=== PATIENT | male | born 1955 | race Caucasian/White ===

== ENCOUNTER → 2019-02-18 06:28 | Outpatient (CLI) | payer BC, SELFPAY ==
[2019-02-18 09:36] LABS: Alanine Aminotransferase 35 IU/L (21-72); Albumin Globulin Ratio 1.3 (1.0-2.8); Alkaline Phosphatase 49 U/L (38-126); Aspartate Aminotransferase 28 IU/L (17-59); BUN Creatinine Ratio 22.5 (6-22); Bilirubin Total 0.5 mg/dL (0.2-1.3); Blood Urea Nitrogen 18 mg/dL (9-20); Calcium 9.2 mg/dL (8.4-10.2); Carbon Dioxide 29 mmol/L (22-32); Chloride 106 mmol/L (98-107); Cholesterol 203 mg/dL (140-199); Estimated Glomerular Filt Rate > 60.0 mL/min (>60); Globulin 3.2 g/dL (1.7-4.1); Glucose 87 mg/dL (80-110); HDL Cholesterol 54 mg/dL (40-60); HEMOLYSIS < 15 (0-50); LDL Cholesterol Calculated 121 mg/dL (<100); Potassium 4.5 mmol/L (3.4-5.1); Sodium 142 mmol/L (137-145); Total Protein 7.2 g/dL (6.3-8.2); Triglycerides 139 mg/dL (35-150)
[2019-02-18 09:51] LABS: Add Manual Diff / Slide Review NO; Basophils Absolute Auto 100 /uL (0-100); Basophils Percent Auto 1.1 % (0-2); Eosinophils Absolute Auto 300 /uL (0-450); Eosinophils Percent Auto 4.9 % (2-4); Hematocrit 43.1 % (41-53); Hemoglobin 14.8 g/dL (13.5-17.5); Lymphocytes Absolute Auto 2400 /uL (1100-4500); Lymphocytes Percent Auto 34.8 % (25-40); Mean Corpuscular HGB Conc 34.3 % (30-36); Mean Corpuscular Hemoglobin 32.5 PG (26-34); Mean Corpuscular Volume 94.6 fL (80-100); Monocytes Absolute Auto 500 /uL (0-900); Monocytes Percent Auto 7.7 % (3-14); Neutrophils Absolute Auto 3500 /uL (1500-7000); Neutrophils Percent Auto 51.5 % (50-75); Platelet Count 294 X10^3/uL (150-400); Red Blood Cell Count 4.55 X10^6/uL (4.5-5.9); Red Cell Distribution Width 14.3 % (11.6-14.8); White Blood Cell Count 6.8 X10^3/uL (4.5-11.0)
[2019-02-18 09:58] LABS: Prostate Specific Antigen Scrn 0.717 ng/mL (0.1-4.0)
[2019-02-18 09:59] LABS: Thyroid Stimulating Hormone 0.88 uIU/mL (0.47-4.68)
[2019-02-18 10:23] LABS: Appearance Urine UA CLEAR; Bilirubin Urine UA NEGATIVE (NEGATIVE); Color Urine UA YELLOW; Glucose Urine UA NEGATIVE (Negative); Ketones Urine UA NEGATIVE (NEGATIVE); Leukocyte Esterase Urine UA NEGATIVE (NEGATIVE); Nitrite Urine UA NEGATIVE (Negative); Occult Blood Urine UA TRACE-LYSED (Negative); Protein Urine UA NEGATIVE (Negative); Specific Gravity Urine UA >=1.030 (1.000-1.035); Urobilinogen Urine UA 0.2 E.U./dL (0.2)
== END ==
PROVIDERS: PCP Family Medicine; Visit Provider Family Medicine
DX: I10 Essential (primary) hypertension (principal); K51.90 Ulcerative colitis, unspecified, without complications; Z12.5 Encounter for screening for malignant neoplasm of prostate; Z13.29 Encounter for screening for other suspected endocrine disorder; Z51.81 Encounter for therapeutic drug level monitoring; Z87.39 Personal history of other diseases of the musculoskeletal system and connective tissue
CPT/HCPCS: 36415; 80053; 80061; 81003; 84443; 85025; G0103

== ENCOUNTER 2019-12-20 14:25 | Emergency (ER) | payer BC, SELFPAY ==
[2019-12-20 14:30] VITALS: BP 142/99; PULSE 105; RESP 18; TEMP 36.7; O2SAT 96; BMI 45.9
--- NOTE | 2019-12-20 14:45 | ED.ABDPAIN ---
HPI - Abdominal Pain <JUAN Gallegos - Last Filed: 12/20/19 21:08> General Chief Complaint: Abdominal Pain Stated Complaint: SEVERE PAIN ON LEFT SIDE AROUND FRONT Time Seen by Provider: 12/20/19 14:27 Source: patient Mode of arrival: Ambulatory Limitations: no limitations History of Present Illness HPI narrative: 64yo male with a history of obesity, ulcerative colitis, lap band, and hypertension, presents emergency department with an aching 7/10 left mid quadrant abdominal pain that started a few hours ago, radiates to L flank. He reports feeling bloated. Patient denies any aggravating or alleviating symptoms. Patient denies any vomiting, nausea, worsening UC symptoms such as diarrhea, blood in stools, chest pain, shortness of breath, cough, fevers, chills, or any other concerns. Patient states he has Remicade infusions for his ulcerative colitis. Related Data Home Medications Medication Instructions Recorded Confirmed infliximab 100 mg intravenous See Rx Instructions .ROUTE 01/24/18 12/20/19 solution .COMPLEX each cholecalciferol (vitamin D3) 1,000 2,000 unit PO DAILY ml 02/14/18 12/20/19 unit/drop oral drops aspirin 81 mg tablet,delayed 81 mg PO DAILY tab 02/11/19 12/20/19 release Previous Rx's Medication Instructions Recorded allopurinol 300 mg tablet 300 mg PO DAILY #90 tab 05/22/19 gabapentin 300 mg capsule 300 mg PO BEDTIME #90 cap 07/02/19 meloxicam 7.5 mg tablet 7.5 mg PO BID #180 tab 08/23/19 verapamil 180 mg 24 hr 180 mg PO DAILY #90 cap 11/05/19 capsule,extended release lisinopril 40 mg tablet 40 mg PO DAILY #90 tab 11/29/19 hydrocodone-acetaminophen [Gallant] 1 tab PO Q4-6H PRN #14 tab 12/20/19 ondansetron 4 mg PO Q6H PRN #20 tab 12/20/19 tamsulosin [Flomax] 0.4 mg PO DAILY #30 cap 12/20/19 Allergies Allergy/AdvReac Type Severity Reaction Status Date / Time Sulfa (Sulfonamide Allergy Intermediate RASH Verified 12/20/19 14:34 Antibiotics) [SULFA (SULFONAMIDE ANTIBIOTICS)] Review of Systems <JUAN Gallegos - Last Filed: 12/20/19 21:08> Review of Systems Narrative: REVIEW OF SYSTEMS: GENERAL: Denies fever, chills, malaise, or wt. loss. HENT: No head trauma. EYES: No vision changes. CARDIOVASCULAR: No chest pain, palpitations, or orthopnea. RESPIRATORY: No shortness of breath or cough. GASTROINTESTINAL: Complains of left mid to lower quadrant abdominal pain, see HPI GENITOURINARY: No dysuria. Pain radiates from Abd to L flank. MUSCULOSKELETAL: No pain, weakness, or trauma. INTEGUMENTARY: No rash, lesions, or pruritus. NEURO: No numbness, tingling, or headaches. PSYCH: No behavior or mood changes. Patient History <JUAN Gallegos - Last Filed: 12/20/19 21:08> Medical History Chicken pox (Resolved) Chronic post-traumatic headache (Chronic) Gout (Chronic ~1996) Hearing loss (Chronic ~1977) Hypertension (Chronic ~2004) Seasonal allergies (Chronic) Sleep apnea (Chronic ~1997) Tinnitus (Chronic ~1977) Ulcerative colitis (Chronic ~1999) Surgical History Anesthesia (Resolved) History of craniotomy (Resolved ~2015) History of left hip replacement (Resolved ~2016) History of right hip replacement (Resolved ~2014) History of sinus surgery (Resolved) Status post right rotator cuff repair (Resolved ~2004) Family History Father Multiple sclerosis Brother Diabetes mellitus Social History Smoking Status: Former smoker Smoking Status: Former smoker Substance Use Type: does not use Exam <JUAN Gallegos - Last Filed: 12/20/19 21:08> Initial Vital Signs Initial Vital Signs: Vital Signs Temperature 98.1 F 12/20/19 14:30 Pulse Rate 105 H 12/20/19 14:30 Respiratory Rate 18 12/20/19 14:30 Blood Pressure 142/99 H 12/20/19 14:30 Pulse Oximetry 96 12/20/19 14:30 PHYSICAL EXAMINATION: GENERAL: Well groomed, alert, and cooperative. Patient is obese. Answers questions promptly and appropriately. Vital signs noted. HENT: Normocephalic, atraumatic. Hearing intact. Oral mucosa is pink and moist. EYES: Conjunctiva pink, sclera white, no periorbital swelling. CARDIOVASCULAR: S1 and S2 sounds normal. Regular rate and rhythm, no murmurs, clicks, or bruits. No pedal edema. RESPIRATORY: Normal respiratory rate, trachea midline, airway patent. No stridor, nasal flaring or accessory muscle use. Lungs are clear in all choudhary without wheeze, rhonchi, or crackles. GASTROINTESTINAL: Bowel sounds normoactive. Abdomen is soft, tenderness to left lower and upper quadrant, no rebound tenderness. Abdomen may be distended, hard to determine due to abdominal obesity. Small mass palpated in this area, patient reports that this is related to his lap band. GENITALURINARY: No flank tenderness. MUSCULOSKELETAL: Normal gait and coordination. Equal tone and mass bilaterally. EXTREMITIES: CMS intact, no pedal edema. SKIN: Warm, dry, soft, appropriate color for ethnicity. No lesions, rashes, or wounds to visualized areas. NEURO: Alert and Oriented X 3. Good coordination. No ataxia, or sensory deficits, or cognitive issues. PSYCH: Appropriate affect and mood. <J Luis Mondragon MD - Last Filed: 12/21/19 07:47> Initial Vital Signs Initial Vital Signs: Vital Signs Temperature 98.1 F 12/20/19 14:30 Pulse Rate 105 H 12/20/19 14:30 Respiratory Rate 18 12/20/19 14:30 Blood Pressure 142/99 H 12/20/19 14:30 Pulse Oximetry 96 12/20/19 14:30 Course <JUAN Gallegos - Last Filed: 12/20/19 21:08> Course Course Narrative: Patient was given 4 mg of morphine which helped decreased pain but pain returned, he was given another 4 mg of morphine. Pain also returned, after administration of Toradol patient reported significant improvement of pain. Orders Ordered: Discontinued Medications Sodium Chloride (Normal Saline 0.9%) 1,000 mls @ 1,000 mls/hr IV BOLUS ONE Stop: 12/20/19 15:42 Last Infusion: 12/20/19 16:18 Dose: 0 mls/hr Documented by: Admin: 12/20/19 14:49 Dose: 1,000 mls/hr Documented by: TALIA Ketorolac Tromethamine (Toradol) 30 mg IV NOW ONE Stop: 12/20/19 16:46 Last Admin: 12/20/19 17:06 Dose: 30 mg Documented by: TEOFILO Morphine Sulfate (Morphine) 4 mg IV NOW ONE Stop: 12/20/19 14:57 Last Admin: 12/20/19 15:04 Dose: 4 mg Documented by: TALIA Morphine Sulfate (Morphine) 4 mg IV NOW ONE Stop: 12/20/19 16:10 Last Admin: 12/20/19 16:18 Dose: 4 mg Documented by: TEOFILO Consultations Consultation #1: Patient staffed with Dr. Mondragon. Vital Signs Vital signs: Vital Signs - 8 hr 12/20/19 14:30 12/20/19 15:02 12/20/19 16:00 Temperature 98.1 F 98.1 F Pulse Rate 105 H 89 70 Respiratory Rate 18 14 20 Blood Pressure 142/99 H Blood Pressure [Right Arm] 151/79 H 151/79 H Pulse Oximetry 96 100 97 12/20/19 17:15 Temperature Pulse Rate 68 Respiratory Rate 18 Blood Pressure Blood Pressure [Right Arm] 177/85 H Pulse Oximetry 97 <J Luis Mondragon MD - Last Filed: 12/21/19 07:47> Orders Ordered: Discontinued Medications Sodium Chloride (Normal Saline 0.9%) 1,000 mls @ 1,000 mls/hr IV BOLUS ONE Stop: 12/20/19 15:42 Last Infusion: 12/20/19 16:18 Dose: 0 mls/hr Documented by: Admin: 12/20/19 14:49 Dose: 1,000 mls/hr Documented by: TALIA Ketorolac Tromethamine (Toradol) 30 mg IV NOW ONE Stop: 12/20/19 16:46 Last Admin: 12/20/19 17:06 Dose: 30 mg Documented by: TEOFILO Morphine Sulfate (Morphine) 4 mg IV NOW ONE Stop: 12/20/19 14:57 Last Admin: 12/20/19 15:04 Dose: 4 mg Documented by: TALIA Morphine Sulfate (Morphine) 4 mg IV NOW ONE Stop: 12/20/19 16:10 Last Admin: 12/20/19 16:18 Dose: 4 mg Documented by: TEOFILO Vital Signs Vital signs: Vital Signs - 8 hr 12/20/19 14:30 12/20/19 15:02 12/20/19 16:00 Temperature 98.1 F 98.1 F Pulse Rate 105 H 89 70 Respiratory Rate 18 14 20 Blood Pressure 142/99 H Blood Pressure [Right Arm] 151/79 H 151/79 H Pulse Oximetry 96 100 97 12/20/19 17:15 Temperature Pulse Rate 68 Respiratory Rate 18 Blood Pressure Blood Pressure [Right Arm] 177/85 H Pulse Oximetry 97 MDM - Abdominal Pain <JUAN Gallegos - Last Filed: 12/20/19 21:08> Medical Records Attestation: I reviewed the patient's medical records. Lab Data Attestation: I reviewed the patient's lab results. Result diagrams: 12/20/19 14:43 12/20/19 14:43 Labs: Lab Results 12/20/19 12/20/19 12/20/19 Range/Units 14:43 14:43 16:40 WBC 11.2 H (4.5-11.0) X10^3/uL RBC 4.64 (4.5-5.9) X10^6/uL Hgb 15.3 (13.5-17.5) g/dL Hct 44.7 (41-53) % MCV 96.3 (80-100) fL MCH 32.9 (26-34) PG MCHC 34.2 (30-36) % RDW 14.6 (11.6-14.8) % Plt Count 309 (150-400) X10^3/uL Neut % (Auto) 74.1 (50-75) % Lymph % (Auto) 18.1 L (25-40) % Evangeline % (Auto) 5.9 (3-14) % Eos % (Auto) 0.8 L (2-4) % Baso % (Auto) 1.1 (0-2) % Neut # (Auto) 8300 H (3144-9561) /uL Lymph # (Auto) 2000 (6273-9669) /uL Evangeline # (Auto) 700 (0-900) /uL Eos # (Auto) 100 (0-450) /uL Baso # (Auto) 100 (0-100) /uL Sodium 140 (137-145) mmol/L Potassium 4.5 (3.4-5.1) mmol/L Chloride 105 (98-107) mmol/L Carbon Dioxide 27 (22-32) mmol/L BUN 19 (9-20) mg/dL Creatinine 1.17 (0.66-1.25) mg/dL Estimated GFR > 60.0 (>60) mL/min BUN/Creatinine Ratio 16.2 (6-22) Glucose 126 H (80-110) mg/dL Calcium 9.5 (8.4-10.2) mg/dL Total Bilirubin 0.5 (0.2-1.3) mg/dL AST 37 (17-59) IU/L ALT 45 (<50) IU/L Alkaline Phosphatase 52 (38-126) U/L Total Protein 8.1 (6.3-8.2) g/dL Albumin 4.4 (3.5-5.0) g/dL Globulin 3.7 (1.7-4.1) g/dL Albumin/Globulin Ratio 1.2 (1.0-2.8) Lipase 48 (23-300) U/L Urine RBC 5-10/hpf H (0-5/HPF) Urine WBC 0-1/hpf (0-5/HPF) Ur Squamous Epith Cells 0-1 /hpf (0-5/HPF) Urine Bacteria None seen (None) Ur Culture Indicated? Cult not indicated Point of care testing: Urine Dip Bedside Urine Glucose Negative Bedside Urine Bilirubin - Negative Bedside Urine Ketone +/- 5 Urine Specific [place] 1.020 Bedside Urine Occult Blood +++ Bedside Urine pH 5.5 Bedside Urine Protein +/- 15 Bedside Urine Urobilinogen - Negative Bedside Urine Nitrite - Negative Bedside Urine Leukocytes - Negative Esterase Imaging Data CT scan - abdomen/pelvis: Radiologist's Impression: [address] [address] [address] Scan Report Signed Patient: Nixon Travis RMR#: [id number] : 7Acct:[id number] Age/Sex: 64 / MDate of Service: 12/20/19 Loc: ED Accession Number: [id number] Procedure: CT abdomen pelvis w con Ordering Provider: Bethany Mancilla PROCEDURE: CT ABDOMEN PELVIS W CON INDICATIONS: L mid abd pain, L flank pain, hx UC TECHNIQUE: After the administration of intravenous contrast, 5 mm thick sections acquired from the diaphragm to the symphysis. 5 mm coronal and sagittal reformats were acquired. For radiation dose reduction, the following was used: automated exposure control, adjustment of mA and/or kV according to patient size. COMPARISON: [facility], CT, ABDOMEN/PELVIS WITH CONTRAST, 02/15/2014, 23:12. FINDINGS: Image quality: Excellent. ABDOMEN: Lung bases: Lung bases are clear. Heart size is normal. Solid organs: Liver is normal in size and enhancement. Gallbladder appears normal. Biliary system is non dilated. Pancreas enhances normally. Spleen is normal in size and enhancement. No adrenal nodules. Kidneys demonstrate normal size but subtle asymmetric reduced left-sided enhancement, with mild hydronephrosis and hydroureter on the left with perinephric and mild periureteral edema. This pattern extends into the pelvis where a impacted 2 x 3 mm calculus can be seen just proximal to the bladder margin, seen on series 2 image 84.. Peritoneum and bowel: Bowel loops demonstrate normal wall thickness and caliber. No free fluid or air. Prior lap band surgery, no evidence of inflammation along the course of the control catheter or at the control device area left anterolateral abdomen/pelvis junction in the subcutaneous fat. Nodes and vessels: No retroperitoneal or mesenteric adenopathy by size criteria. Aorta and inferior vena cava are normal in size. Miscellaneous: No ventral hernias. PELVIS: Genitourinary: Bladder wall thickness is normal. Miscellaneous: No inguinal hernias or adenopathy. Bones: No suspicious bony lesions. No vertebral body compression fractures. IMPRESSION: 2 x 3 mm calculus within the distal left ureter causing mild left hydronephrosis and hydroureter and perinephric and periureteral edema in addition to slight reduced enhancement of the left kidney. No diverticulitis is found. Gastric lap band surgery, without associated inflammation are visualized operative complication. Dictated by: Kelechi Mcpherson M.D. on 12/20/2019 at 16:37 Approved by: Kelechi Mcpherson M.D. on 12/20/2019 at 16:40 ECG Data Interpretation: Sinus rhythm, rate 87, IN interval 164, QTC 411. No ST elevation or ST depression. Borderline left axis deviation. No T wave inversion in V1. Mild right ventricular delay in V1 and V2. EKG also viewed by Dr. Mondragon. [facility] Narrative Medical decision making narrative: 64-year-old male history of ulcerative colitis presenting to the emergency department with left abdominal and flank pain. CT showed small renal calculus in the left ureter with hydronephrosis which is most likely the cause of pain. Renal function was intact, normal creatinine and GFR, pain was reduced with medications, patient was not vomiting, was a candidate for outpatient treatment. Patient did have an elevated white blood cell count of 11, this was an isolated white blood cell count which he has had in the past, no left shift, urine was clean without nitrates, leukocytes or bacteria, and lack of any infectious findings on CT. Additionally, patient was afebrile, non tachycardic, and did not display any other symptoms of infectious etiology. Likely acute abdominal etiology due to lack of other suspicious findings such as diverticulitis or perforation or abscess. Patient was encouraged to follow up with Urology and primary care provider in the next week. He was given pain medication, tamsulosin, and nausea medication. Due to small measure of stone measuring 2 mm x 3 mm without signs of renal impairment, patient will most likely passed stone. However, he was given very strict return precautions for new or worsening symptoms such as the development of a fever, severe pain, uncontrollable vomiting, and except drip. Patient agreed to plan of care verbalized understanding. <J Luis Mondragon MD - Last Filed: 12/21/19 07:47> Lab Data Labs: Lab Results 12/20/19 12/20/19 12/20/19 Range/Units 14:43 14:43 16:40 WBC 11.2 H (4.5-11.0) X10^3/uL RBC 4.64 (4.5-5.9) X10^6/uL Hgb 15.3 (13.5-17.5) g/dL Hct 44.7 (41-53) % MCV 96.3 (80-100) fL MCH 32.9 (26-34) PG MCHC 34.2 (30-36) % RDW 14.6 (11.6-14.8) % Plt Count 309 (150-400) X10^3/uL Neut % (Auto) 74.1 (50-75) % Lymph % (Auto) 18.1 L (25-40) % Evangeline % (Auto) 5.9 (3-14) % Eos % (Auto) 0.8 L (2-4) % Baso % (Auto) 1.1 (0-2) % Neut # (Auto) 8300 H (2505-3087) /uL Lymph # (Auto) 2000 (1504-4690) /uL Evangeline # (Auto) 700 (0-900) /uL Eos # (Auto) 100 (0-450) /uL Baso # (Auto) 100 (0-100) /uL Sodium 140 (137-145) mmol/L Potassium 4.5 (3.4-5.1) mmol/L Chloride 105 (98-107) mmol/L Carbon Dioxide 27 (22-32) mmol/L BUN 19 (9-20) mg/dL Creatinine 1.17 (0.66-1.25) mg/dL Estimated GFR > 60.0 (>60) mL/min BUN/Creatinine Ratio 16.2 (6-22) Glucose 126 H (80-110) mg/dL Calcium 9.5 (8.4-10.2) mg/dL Total Bilirubin 0.5 (0.2-1.3) mg/dL AST 37 (17-59) IU/L ALT 45 (<50) IU/L Alkaline Phosphatase 52 (38-126) U/L Total Protein 8.1 (6.3-8.2) g/dL Albumin 4.4 (3.5-5.0) g/dL Globulin 3.7 (1.7-4.1) g/dL Albumin/Globulin Ratio 1.2 (1.0-2.8) Lipase 48 (23-300) U/L Urine RBC 5-10/hpf H (0-5/HPF) Urine WBC 0-1/hpf (0-5/HPF) Ur Squamous Epith Cells 0-1 /hpf (0-5/HPF) Urine Bacteria None seen (None) Ur Culture Indicated? Cult not indicated Point of care testing: Urine Dip Bedside Urine Glucose Negative Bedside Urine Bilirubin - Negative Bedside Urine Ketone +/- 5 Urine Specific [place] 1.020 Bedside Urine Occult Blood +++ Bedside Urine pH 5.5 Bedside Urine Protein +/- 15 Bedside Urine Urobilinogen - Negative Bedside Urine Nitrite - Negative Bedside Urine Leukocytes - Negative Esterase Discharge Plan Departure Patient Disposition: Home Clinical Impression: Renal calculi Discharge Date/Time: 12/20/19 17:42 Instructions: DI for Kidney Stones Activity Restrictions/Additional Instructions: Thank you for entrusting me with your care today. As discussed, I suspect your pain is most likely caused by the kidney stone seen on your CT. This stone is 2cm x3cm which is usually passable on your own. However, I recommend calling the urologist listed below as soon as possible for to schedule a follow-up appointment. I prescribed you nausea medication (ondansetron), pain medication (hydrocodone), and a medication to help with passage of a kidney stone (tamsulosin). You have been prescribed a narcotic medication, this medication can make you drowsy. Do not drive while using this medication or perform activities that require mental alertness. These medications can also make you constipated, please use [id number] docusate sodium as needed for constipation. Use caution when changing positions, the tamsulosin can lower blood pressure occasionally making dizzy. Please return emergency department if you develop any new or worsening symptoms such as fevers, uncontrollable vomiting, severe pain, syncope, chest pain, shortness of breath, or any other concerns. Prescriptions: New ondansetron 4 mg tablet,disintegrating 4 mg PO Q6H PRN (Reason: nausea and vomiting) Qty: 20 RF: 0 hydrocodone-acetaminophen [Gallant] 5-325 mg tablet 1 tab PO Q4-6H PRN (Reason: pain) Qty: 14 RF: 0 tamsulosin [Flomax] 0.4 mg capsule 0.4 mg PO DAILY Qty: 30 RF: 0 No Action allopurinol 300 mg tablet 300 mg PO DAILY Qty: 90 RF: 1 gabapentin 300 mg capsule 300 mg PO BEDTIME Qty: 90 RF: 1 meloxicam [Mobic] 7.5 mg tablet 7.5 mg PO BID Qty: 180 RF: 2 verapamil 180 mg capsule,ext rel. pellets 24 hr 180 mg PO DAILY Qty: 90 RF: 0 lisinopril 40 mg tablet 40 mg PO DAILY Qty: 90 RF: 0 aspirin 81 mg tablet,delayed release (DR/EC) 81 mg PO DAILY RF: 0 infliximab [Remicade] 100 mg recon soln See Rx Instructions .ROUTE .COMPLEX RF: 0 cholecalciferol (vitamin D3) 1,000 unit/drop drops 2,000 unit PO DAILY RF: 0 Referrals: Hadjinian,Heydi, MD [Non-Staff] - (Renal calculi) Gilberto Brown DO [Primary Care Provider] -
[2019-12-20] MEDS: SODIUM CHLORIDE 0.9% 1,000 ML 1000 ML IV (14:49)
--- NOTE | 2019-12-20 14:49 | DI.CT.S_ITS ---
PROCEDURE: CT ABDOMEN PELVIS W CON INDICATIONS: L mid abd pain, L flank pain, hx UC TECHNIQUE: After the administration of intravenous contrast, 5 mm thick sections acquired from the diaphragm to the symphysis. 5 mm coronal and sagittal reformats were acquired. For radiation dose reduction, the following was used: automated exposure control, adjustment of mA and/or kV according to patient size. COMPARISON: [facility], CT, ABDOMEN/PELVIS WITH CONTRAST, 02/15/2014, 23:12. FINDINGS: Image quality: Excellent. ABDOMEN: Lung bases: Lung bases are clear. Heart size is normal. Solid organs: Liver is normal in size and enhancement. Gallbladder appears normal. Biliary system is non dilated. Pancreas enhances normally. Spleen is normal in size and enhancement. No adrenal nodules. Kidneys demonstrate normal size but subtle asymmetric reduced left-sided enhancement, with mild hydronephrosis and hydroureter on the left with perinephric and mild periureteral edema. This pattern extends into the pelvis where a impacted 2 x 3 mm calculus can be seen just proximal to the bladder margin, seen on series 2 image 84.. Peritoneum and bowel: Bowel loops demonstrate normal wall thickness and caliber. No free fluid or air. Prior lap band surgery, no evidence of inflammation along the course of the control catheter or at the control device area left anterolateral abdomen/pelvis junction in the subcutaneous fat. Nodes and vessels: No retroperitoneal or mesenteric adenopathy by size criteria. Aorta and inferior vena cava are normal in size. Miscellaneous: No ventral hernias. PELVIS: Genitourinary: Bladder wall thickness is normal. Miscellaneous: No inguinal hernias or adenopathy. Bones: No suspicious bony lesions. No vertebral body compression fractures. IMPRESSION: 2 x 3 mm calculus within the distal left ureter causing mild left hydronephrosis and hydroureter and perinephric and periureteral edema in addition to slight reduced enhancement of the left kidney. No diverticulitis is found. Gastric lap band surgery, without associated inflammation are visualized operative complication. Dictated by: Kelechi Mcpherson M.D. on 12/20/2019 at 16:37 Approved by: Kelechi Mcpherson M.D. on 12/20/2019 at 16:40
[2019-12-20 14:55] LABS: Add Manual Diff / Slide Review NO; Basophils Absolute Auto 100 /uL (0-100); Basophils Percent Auto 1.1 % (0-2); Eosinophils Absolute Auto 100 /uL (0-450); Eosinophils Percent Auto 0.8 % (2-4); Hematocrit 44.7 % (41-53); Hemoglobin 15.3 g/dL (13.5-17.5); Lymphocytes Absolute Auto 2000 /uL (1100-4500); Lymphocytes Percent Auto 18.1 % (25-40); Mean Corpuscular HGB Conc 34.2 % (30-36); Mean Corpuscular Hemoglobin 32.9 PG (26-34); Mean Corpuscular Volume 96.3 fL (80-100); Monocytes Absolute Auto 700 /uL (0-900); Monocytes Percent Auto 5.9 % (3-14); Neutrophils Absolute Auto 8300 /uL (1500-7000); Neutrophils Percent Auto 74.1 % (50-75); Platelet Count 309 X10^3/uL (150-400); Red Blood Cell Count 4.64 X10^6/uL (4.5-5.9); Red Cell Distribution Width 14.6 % (11.6-14.8); White Blood Cell Count 11.2 X10^3/uL (4.5-11.0)
[2019-12-20 15:02] VITALS: BP 151/79; PULSE 89; RESP 14; TEMP 36.7; O2SAT 100
[2019-12-20] MEDS: MORPHINE 4 MG/ML INJ IV ×2 (15:04→16:18)
[2019-12-20 15:08] LABS: Alanine Aminotransferase 45 IU/L (<50); Albumin 4.4 g/dL (3.5-5.0); Albumin Globulin Ratio 1.2 (1.0-2.8); Alkaline Phosphatase 52 U/L (38-126); Aspartate Aminotransferase 37 IU/L (17-59); BUN Creatinine Ratio 16.2 (6-22); Bilirubin Total 0.5 mg/dL (0.2-1.3); Blood Urea Nitrogen 19 mg/dL (9-20); Calcium 9.5 mg/dL (8.4-10.2); Carbon Dioxide 27 mmol/L (22-32); Chloride 105 mmol/L (98-107); Estimated Glomerular Filt Rate > 60.0 mL/min (>60); Globulin 3.7 g/dL (1.7-4.1); Glucose 126 mg/dL (80-110); HEMOLYSIS 48 (0-50); Lipase 48 U/L (23-300); Potassium 4.5 mmol/L (3.4-5.1); Sodium 140 mmol/L (137-145); Total Protein 8.1 g/dL (6.3-8.2)
[2019-12-20 16:00] VITALS: BP 151/79; PULSE 70; RESP 20; O2SAT 97
[2019-12-20 17:02] LABS: Bacteria Urine None Seen
[2019-12-20] MEDS: KETOROLAC 60 MG/2 ML VIAL 30 MG IV (17:06)
[2019-12-20 17:12] LABS: Culture Indicated Urine Cult Not Indicated; RBC Urine 5-10/HPF (0-5/HPF); Squamous Epithelial Cell Urine 0-1 /HPF (0-5/HPF); WBC Urine 0-1/HPF (0-5/HPF)
[2019-12-20 17:15] VITALS: BP 177/85; PULSE 68; RESP 18; O2SAT 97
== END 2019-12-20 17:42 | disposition home or self-care (01) ==
PROVIDERS: Emergency Provider Nurse Practitioner; PCP Family Medicine
DX: N20.0 Calculus of kidney (principal); E66.01 Morbid (severe) obesity due to excess calories
CPT/HCPCS: 36415; 74177; 80053; 81003; 81015; 83690; 85025; 93005; 93010; 96361; 96374; 96375; 96376; 99284; J1885; J2270; Q9967

== ENCOUNTER → 2020-04-10 07:08 | Outpatient (CLI) | payer BC, SELFPAY ==
[2020-04-10 07:50] LABS: Alanine Aminotransferase 35 IU/L (<50); Albumin Globulin Ratio 1.3 (1.0-2.8); Alkaline Phosphatase 58 U/L (38-126); Aspartate Aminotransferase 26 IU/L (17-59); BUN Creatinine Ratio 24.7 (6-22); Bilirubin Total 0.7 mg/dL (0.2-1.3); Blood Urea Nitrogen 20 mg/dL (9-20); Calcium 9.4 mg/dL (8.4-10.2); Carbon Dioxide 28 mmol/L (22-32); Chloride 107 mmol/L (98-107); Cholesterol 187 mg/dL (140-199); Estimated Glomerular Filt Rate > 60.0 mL/min (>60); Globulin 3.2 g/dL (1.7-4.1); Glucose 92 mg/dL (80-110); HDL Cholesterol 56 mg/dL (40-60); HEMOLYSIS < 15 (0-50); LDL Cholesterol Calculated 95 mg/dL (<100); Potassium 4.6 mmol/L (3.4-5.1); Sodium 139 mmol/L (137-145); Total Protein 7.2 g/dL (6.3-8.2); Triglycerides 179 mg/dL (35-150)
[2020-04-10 08:06] LABS: Free T3, Triiodothyronine Free 3.76 pg/mL (2.77-5.27); Free T4, Direct Thyroxine 1.09 ng/dL (0.78-2.19); Vitamin D 25 Hydroxy (D3) 33.1 ng/mL (30.0-100.0)
[2020-04-10 08:20] LABS: Prostate Specific Antigen Scrn 0.827 ng/mL (0.1-4.0); Thyroid Stimulating Hormone 1.01 uIU/mL (0.47-4.68)
[2020-04-10 08:38] LABS: Vitamin B12 623 pg/mL (239-931)
== END ==
PROVIDERS: PCP Family Medicine; Referring Provider Family Medicine; Visit Provider Family Medicine
DX: Z00.00 Encounter for general adult medical examination without abnormal findings (principal); E66.01 Morbid (severe) obesity due to excess calories; G62.9 Polyneuropathy, unspecified; I10 Essential (primary) hypertension; R73.9 Hyperglycemia, unspecified; Z12.5 Encounter for screening for malignant neoplasm of prostate
CPT/HCPCS: 36415; 80053; 80061; 82306; 82607; 84439; 84443; 84481; G0103

== ENCOUNTER 2020-08-09 13:12 | Emergency (ER) | payer BC, SELFPAY ==
[2020-08-09 13:17] VITALS: BP 188/96; PULSE 80; RESP 20; TEMP 36.7; O2SAT 96; BMI 45.1
[2020-08-09] MEDS: ONDANSETRON 4 MG/2 ML INJ IV (14:31)
[2020-08-09] MEDS: MORPHINE 2 MG/ML INJ IV (14:31)
--- NOTE | 2020-08-09 14:40 | ED_ITS ---
HPI - Male Genitourinary <Hilda Ndiaye, [employer]OR [employer]ACH [employer] OPERATOR-BC - Last Filed: 08/09/20 18:57> General Chief complaint: Urogenital-Male Stated complaint: Kidney Stone, Nauseated Time Seen by Provider: 08/09/20 14:23 Source: patient Mode of arrival: Ambulatory Limitations: no limitations History of Present Illness HPI Narrative: The patient is a 64-year-old male former smoker with history of obstructive sleep apnea, hypertension, chronic headache who presents with a chief complaint of left-sided flank pain. He also has a history of kidney stone was here several months ago for one. He states that this started at 10:00 a.m., with severe left-sided flank pain and nausea. Comes and goes in waves. He t akes meloxicam daily for pain, which he took this morning. He states he feels like he cannot completely empty his bladder. He states he is having trouble urinating. He never followed up with a urologist when he was here in November for a kidney stone. The patient denies any specific dysuria. He presents with his . Denies any fevers muscle aches or chills. He took ondansetron by his prior to arrival to the emergency department. Related Data Home Medications Medication Instructions Recorded Confirmed infliximab 100 mg intravenous See Rx Instructions .ROUTE 01/24/18 04/15/20 solution .COMPLEX each cholecalciferol (vitamin D3) 2,000 unit PO DAILY ml 02/14/18 04/15/20 aspirin 81 mg tablet,delayed 81 mg PO DAILY tab 02/11/19 04/15/20 release Previous Rx's Medication Instructions Recorded tamsulosin [Flomax] 0.4 mg PO DAILY #30 cap 12/20/19 allopurinol 300 mg tablet 300 mg PO DAILY #90 tab 12/24/19 lisinopril 40 mg tablet 40 mg PO DAILY #90 tab 03/03/20 meloxicam 7.5 mg tablet 7.5 mg PO BID #180 tab 05/20/20 gabapentin 300 mg capsule 300 mg PO BEDTIME #90 cap 07/13/20 verapamil 180 mg 24 hr 180 mg PO DAILY #90 cap 07/21/20 capsule,extended release hydrocodone-acetaminophen [[place]] 1 tab PO Q4-6H PRN #10 tab 08/09/20 ondansetron 4 mg PO Q6H PRN #20 tab 08/09/20 tamsulosin 0.4 mg PO BEDTIME #7 cap 08/09/20 Allergies Allergy/AdvReac Type Severity Reaction Status Date / Time Sulfa (Sulfonamide Allergy Intermediate RASH Verified 04/15/20 11:00 Antibiotics) [SULFA (SULFONAMIDE ANTIBIOTICS)] Review of Systems <KIRAN Gay - Last Filed: 08/09/20 18:57> Review of Systems Narrative: GENERAL: Denies chills, fatigue, malaise, fever, sweats. HEENT: Denies sinus pain, ear pain, sore throat, difficulty swallowing, dizziness. RESPIRATORY: Denies dyspnea, cough, wheezing, hemoptysis, sputum. CARDIOVASCULAR: Denies chest pain, palpitations, orthopnea, edema, GASTROINTESTINAL: See HPI : See HPI MUSCULOSKELETAL: denies weakness, joint pain, or bony pain SKIN: Denies rash, skin lesions, or other NEUROLOGIC: Denies weakness, headache, numbness, change in speech, confusion, seizures, incoordination. PSYCHIATRIC: No concerning psychosocial issues. 12 point review of systems is negative except for those stated above Patient History <KIRAN Gay - Last Filed: 08/09/20 18:57> Medical History Chicken pox Chronic post-traumatic headache Gout (~1996) Hearing loss (~1977) Hypertension (~2004) Morbid obesity with body mass index (BMI) of 40.0 to 49.9 Obstructive sleep apnea syndrome (~1997) Renal calculi Seasonal allergies Tinnitus (~1977) Ulcerative colitis (~1999) Vitamin D deficiency Surgical History Anesthesia History of craniotomy (~2015) History of left hip replacement (~2016) History of right hip replacement (~2014) History of sinus surgery Status post right rotator cuff repair (~2004) Family History Father Multiple sclerosis Brother Diabetes mellitus Hypertension Sleep apnea Mother Congestive heart failure Heart disease Social History Smoking Status: Former smoker Smoking Status: Former smoker Substance Use Type: does not use Exam <KIRAN Gay - Last Filed: 08/09/20 18:57> Narrative Exam Narrative: GENERAL: This is a well-nourished, well-developed patient, in appears uncomfortable holding a vomit bag HEAD: Atraumatic. Normocephalic. No temporal or scalp tenderness. EYES: Pupils equal round and reactive. Extraocular motions intact. No scleral icterus. No injection or drainage. ENT: Nose without bleeding, purulent drainage or septal hematoma. Wearing a mask. Airway patent. NECK: Trachea midline. No JVD or lymphadenopathy. Supple, nontender, no meningeal signs. CARDIOVASCULAR: Regular rate and rhythm RESPIRATORY: Clear to auscultation. Breath sounds equal bilaterally. No wheezes, rales, or rhonchi. No cough. No increased respiratory effort. No accessory muscle use. GASTROINTESTINAL: Abdomen soft, diffuse tenderness left lower quadrant, nondistended. No hepato-splenomegaly, or palpable masses. No guarding. EXTREMITIES: No clubbing, cyanosis, or edema. No joint tenderness, effusion, or edema noted. BACK: Nontender without deformity or crepitance. Slight CVA tenderness left side NEURO: AOx3. SKIN: No rash or erythema on visible skin Initial Vital Signs Initial Vital Signs: Vital Signs Temperature 98.1 F 08/09/20 13:17 Pulse Rate 80 08/09/20 13:17 Respiratory Rate 20 08/09/20 13:17 Blood Pressure 188/96 H 08/09/20 13:17 Pulse Oximetry 96 08/09/20 13:17 <Marie Hudson MD - Last Filed: 08/11/20 07:29> Initial Vital Signs Initial Vital Signs: Vital Signs Temperature 98.1 F 08/09/20 13:17 Pulse Rate 80 08/09/20 13:17 Respiratory Rate 20 08/09/20 13:17 Blood Pressure 188/96 H 08/09/20 13:17 Pulse Oximetry 96 08/09/20 13:17 Scores <KIRAN Gay - Last Filed: 08/09/20 18:57> GCS Ivan coma scale eye opening: Spontaneous [place] coma scale verbal response: Orientated [place] coma scale motor response: Obey commands [place] coma scale total score: 15 Course <LRONA GayBC - Last Filed: 08/09/20 18:57> Orders Ordered: Discontinued Medications Hydrocodone Bitart/Acetaminophen (Hydrocodone/Acet 5/325 Prepack) 1 bottle MISC SEEINSTR ONE Stop: 08/09/20 17:33 Last Admin: 08/09/20 17:46 Dose: 1 bottle Documented by: JOSELYN Sodium Chloride (Normal Saline 0.9%) 1,000 mls @ 1,000 mls/hr IV BOLUS ONE Stop: 08/09/20 15:24 Last Infusion: 08/09/20 17:20 Dose: 0 mls/hr Documented by: Admin: 08/09/20 15:38 Dose: 1,000 mls/hr Documented by: JOSELYN Morphine Sulfate (Morphine 2 Mg/Ml Inj) 2 mg IV NOW ONE Stop: 08/09/20 14:26 Last Admin: 08/09/20 14:31 Dose: 2 mg Documented by: TIM Morphine Sulfate (Morphine 4 Mg/Ml Inj) 4 mg IV NOW ONE Stop: 08/09/20 15:06 Last Admin: 08/09/20 15:35 Dose: 4 mg Documented by: JOSELYN Ondansetron HCl (Ondansetron 4 Mg/2 Ml Inj) 4 mg IV NOW ONE Stop: 08/09/20 14:27 Last Admin: 08/09/20 14:31 Dose: 4 mg Documented by: TIM Ondansetron HCl (Ondansetron 4 Mg Odt Prepack) 1 bottle MISC SEEINSTR ONE Stop: 08/09/20 17:33 Last Admin: 08/09/20 17:46 Dose: 1 bottle Documented by: JOSELYN Tamsulosin HCl (Tamsulosin 0.4 Mg Capsule) 0.4 mg PO NOW ONE Stop: 08/09/20 17:10 Last Admin: 08/09/20 17:25 Dose: 0.4 mg Documented by: JOSELYN Vital Signs Vital signs: Vital Signs - 8 hr 08/09/20 13:17 08/09/20 17:52 08/09/20 18:15 Temperature 98.1 F 98.1 F Pulse Rate 80 69 Respiratory Rate 20 14 Blood Pressure 188/96 H 147/72 H Pulse Oximetry 96 98 <Marie Hudson MD - Last Filed: 08/11/20 07:29> Orders Ordered: Discontinued Medications Hydrocodone Bitart/Acetaminophen (Hydrocodone/Acet 5/325 Prepack) 1 bottle MISC SEEINSTR ONE Stop: 08/09/20 17:33 Last Admin: 08/09/20 17:46 Dose: 1 bottle Documented by: JOSELYN Sodium Chloride (Normal Saline 0.9%) 1,000 mls @ 1,000 mls/hr IV BOLUS ONE Stop: 08/09/20 15:24 Last Infusion: 08/09/20 17:20 Dose: 0 mls/hr Documented by: Admin: 08/09/20 15:38 Dose: 1,000 mls/hr Documented by: JOSELYN Morphine Sulfate (Morphine 2 Mg/Ml Inj) 2 mg IV NOW ONE Stop: 08/09/20 14:26 Last Admin: 08/09/20 14:31 Dose: 2 mg Documented by: TIM Morphine Sulfate (Morphine 4 Mg/Ml Inj) 4 mg IV NOW ONE Stop: 08/09/20 15:06 Last Admin: 08/09/20 15:35 Dose: 4 mg Documented by: JOSELYN Ondansetron HCl (Ondansetron 4 Mg/2 Ml Inj) 4 mg IV NOW ONE Stop: 08/09/20 14:27 Last Admin: 08/09/20 14:31 Dose: 4 mg Documented by: TIM Ondansetron HCl (Ondansetron 4 Mg Odt Prepack) 1 bottle MISC SEEINSTR ONE Stop: 08/09/20 17:33 Last Admin: 08/09/20 17:46 Dose: 1 bottle Documented by: JOSELYN Tamsulosin HCl (Tamsulosin 0.4 Mg Capsule) 0.4 mg PO NOW ONE Stop: 08/09/20 17:10 Last Admin: 08/09/20 17:25 Dose: 0.4 mg Documented by: JOSELYN Vital Signs Vital signs: Vital Signs - 8 hr 08/09/20 13:17 08/09/20 17:52 08/09/20 18:15 Temperature 98.1 F 98.1 F Pulse Rate 80 69 Respiratory Rate 20 14 Blood Pressure 188/96 H 147/72 H Pulse Oximetry 96 98 MDM - Male Genitourinary <KIRAN Gay - Last Filed: 08/09/20 18:57> Differential Diagnosis Differential diagnosis: Likely urinary tract infection Lab Data Attestation: I reviewed the patient's lab results. Result diagrams: 08/09/20 14:20 08/09/20 14:20 Labs: Lab Results 08/09/20 08/09/20 08/09/20 Range/Units 13:25 14:20 14:20 WBC 13.8 H (4.5-11.0) X10^3/uL RBC 4.69 (4.5-5.9) X10^6/uL Hgb 14.9 (13.5-17.5) g/dL Hct 44.9 (41-53) % MCV 95.8 (80-100) fL MCH 31.8 (26-34) PG MCHC 33.2 (30-36) % RDW 14.4 (11.6-14.8) % Plt Count 276 (150-400) X10^3/uL Neut % (Auto) 82.9 H (50-75) % Lymph % (Auto) 11.1 L (25-40) % [place] % (Auto) 4.9 (3-14) % Eos % (Auto) 0.4 L (2-4) % Baso % (Auto) 0.7 (0-2) % Neut # (Auto) 45230 H (9448-8732) /uL Lymph # (Auto) 1500 (0821-1024) /uL [place] # (Auto) 700 (0-900) /uL Eos # (Auto) 100 (0-450) /uL Baso # (Auto) 100 (0-100) /uL Sodium 137 (137-145) mmol/L Potassium 4.1 (3.4-5.1) mmol/L Chloride 105 (98-107) mmol/L Carbon Dioxide 29 (22-32) mmol/L BUN 22 H (9-20) mg/dL Creatinine 1.06 (0.66-1.25) mg/dL Estimated GFR > 60.0 (>60) mL/min BUN/Creatinine Ratio 20.8 (6-22) Glucose 125 H (80-110) mg/dL Calcium 9.4 (8.4-10.2) mg/dL Magnesium 1.8 (1.6-2.3) mg/dL Total Bilirubin 0.5 (0.2-1.3) mg/dL AST 31 (17-59) IU/L ALT 37 (<50) IU/L Alkaline Phosphatase 63 (38-126) U/L Total Protein 7.4 (6.3-8.2) g/dL Albumin 4.2 (3.5-5.0) g/dL Globulin 3.2 (1.7-4.1) g/dL Albumin/Globulin Ratio 1.3 (1.0-2.8) Urine RBC 1-5/hpf (0-5/HPF) Urine WBC 0-1/hpf (0-5/HPF) Ur Squamous Epith Cells 0-1 /hpf (0-5/HPF) Calcium Oxalate Crystal Few H Amorphous Sediment 1+ Urine Bacteria None seen (None) Urine Mucus 1+ H (Negative) Ur Culture Indicated? Cult not indicated Urine Dip Bedside Urine Glucose Negative Bedside Urine Bilirubin - Negative Bedside Urine Ketone - Negative Urine Specific Novelty 1.030 Bedside Urine Occult Blood +++ Bedside Urine pH 6.0 Bedside Urine Protein ++ 100 Bedside Urine Urobilinogen - Negative Bedside Urine Nitrite - Negative Bedside Urine Leukocytes - Negative Esterase Imaging Data CT scan - abdomen/pelvis: Radiologist's Impression: [address] [place] [id number] Scan ReportSigned Patient: Nixon Travis R#: [id number]: [id number]:[id number]/Sex: 64 / MDate of Service: 08/09/20Loc: EDAccession Number: [id number] Procedure: CT kidney ureter bladder (KUB) Ordering Provider: Hilda Ndiaye [facility]- PROCEDURE: CT KIDNEY URETER BLADDER (KUB) INDICATIONS: left flank pain, hx stones TECHNIQUE: Noncontrast 5 mm thick sections acquired from the diaphragms to the symphysis. 5 mm thick coronal and sagittal reformats were then performed. For radiation dose reduction, the following was used: automated exposure control, adjustment of mA and/or kV according to patient size. COMPARISON: CT, ABDOMEN/PELVIS WITH CONTRAST, 02/15/2014, 23:12. [facility], CT, CT ABDOMEN PELVIS W CON, 12/20/2019, 16:14. FINDINGS: Image quality: Excellent. Lung bases: Small pulmonary nodules at the lung bases. For example right lower lobe 5 mm, (3/15); and left upper lobe inferiorly 5 mm, (3/1); and left lower lobe 4 mm, (3/20). Many of these pulmonary nodules are seen dating back to 2013 suggesting a benign etiology. Heart size is normal. Gynecomastia. Urinary system: Both kidneys are normal in size. Obstructing calculus at the left UVJ measuring 4 x 3 mm, (), the stone has moved distally compared to the CT from November 2019. Mild left hydroureteronephrosis, increased. Stranding surrounding the left kidney, increased. No additional kidney stones. No calcified bladder stones. Bladder evaluation is somewhat limited by beam hardening artifact. Other solid organs: Liver is normal in size. Gallbladder is unremarkable. Pancreas is normal in contours. Spleen is normal in size. No adrenal nodules. Peritoneum and bowel: Gastric band which remains below the diaphragm. Unenhanced bowel loops demonstrate normal wall thickness and caliber. No free fluid or air. Nodes and vessels: No retroperitoneal or mesenteric adenopathy by size criteria. Low-density area of heterogeneity in the right lower quadrant mesenteric fat, (), unchanged and may be due to fat necrosis or the sequelae of prior epiploic appendagitis. This may be faintly visualized on the CT from 2013. Aorta and inferior vena cava are normal in caliber. Mild calcified atherosclerotic plaque. Abdominal wall: Small fat containing periumbilical hernia. Pelvis: No free pelvic fluid. No inguinal hernias or adenopathy. Bones: No suspicious bony lesions. No vertebral body compression fractures. IMPRESSION: 1. Obstructing calculus at the left UVJ measuring 4 x 3 mm. The stone has moved distally compared to November 2019. Mild left hydroureteronephrosis which is increased. 2. No additional kidney stones. 3. Small pulmonary nodules at the lung bases are again seen. Many of the nodules are seen on the CT from 2013 and are similar in size suggesting a benign etiology. Dictated by: Mil Vazquez M.D. on 08/09/2020 at 15:26 Approved by: Mil Vazquez M.D. on 08/09/2020 at 15:41 MDM Narrative Medical decision making narrative: The patient is a 64-year-old male who presents with a chief complaint of ?I think I have a kidney stone. He presents with left-sided flank pain, and nausea. Lab work is grossly normal, slight leukocytosis noted, could be related to no abdominal pain. Urine has no signs of infection. His kidney function is within normal limits, with creatinine of 1.06. CT KUB shows a stone at the left UVJ, measuring 4 x 3 mm. This correlates with his exam, urinalysis showing hematuria and presenting complaints. Patient was given morphine for pain in the ER, however held off on NSAIDs as the patient is already on meloxicam daily. Patient was started on Flomax. Encouraged follow-up with primary care provider as well as urologist. Provided contact information for Dr. Robles, [facility] urologist. Discussed coming back to the ER for acute concerns such as inability keep down fluids, signs of urinary infection, fevers etcetera. Patient have no questions or concerns upon discharge and state understanding of return precautions as well as follow-up care. <Marie Hudson MD - Last Filed: 08/11/20 07:29> Lab Data Labs: Lab Results 08/09/20 08/09/20 08/09/20 Range/Units 13:25 14:20 14:20 WBC 13.8 H (4.5-11.0) X10^3/uL RBC 4.69 (4.5-5.9) X10^6/uL Hgb 14.9 (13.5-17.5) g/dL Hct 44.9 (41-53) % MCV 95.8 (80-100) fL MCH 31.8 (26-34) PG MCHC 33.2 (30-36) % RDW 14.4 (11.6-14.8) % Plt Count 276 (150-400) X10^3/uL Neut % (Auto) 82.9 H (50-75) % Lymph % (Auto) 11.1 L (25-40) % [place] % (Auto) 4.9 (3-14) % Eos % (Auto) 0.4 L (2-4) % Baso % (Auto) 0.7 (0-2) % Neut # (Auto) 38499 H (2353-3617) /uL Lymph # (Auto) 1500 (8092-3470) /uL [place] # (Auto) 700 (0-900) /uL Eos # (Auto) 100 (0-450) /uL Baso # (Auto) 100 (0-100) /uL Sodium 137 (137-145) mmol/L Potassium 4.1 (3.4-5.1) mmol/L Chloride 105 (98-107) mmol/L Carbon Dioxide 29 (22-32) mmol/L BUN 22 H (9-20) mg/dL Creatinine 1.06 (0.66-1.25) mg/dL Estimated GFR > 60.0 (>60) mL/min BUN/Creatinine Ratio 20.8 (6-22) Glucose 125 H (80-110) mg/dL Calcium 9.4 (8.4-10.2) mg/dL Magnesium 1.8 (1.6-2.3) mg/dL Total Bilirubin 0.5 (0.2-1.3) mg/dL AST 31 (17-59) IU/L ALT 37 (<50) IU/L Alkaline Phosphatase 63 (38-126) U/L Total Protein 7.4 (6.3-8.2) g/dL Albumin 4.2 (3.5-5.0) g/dL Globulin 3.2 (1.7-4.1) g/dL Albumin/Globulin Ratio 1.3 (1.0-2.8) Urine RBC 1-5/hpf (0-5/HPF) Urine WBC 0-1/hpf (0-5/HPF) Ur Squamous Epith Cells 0-1 /hpf (0-5/HPF) Calcium Oxalate Crystal Few H Amorphous Sediment 1+ Urine Bacteria None seen (None) Urine Mucus 1+ H (Negative) Ur Culture Indicated? Cult not indicated Urine Dip Bedside Urine Glucose Negative Bedside Urine Bilirubin - Negative Bedside Urine Ketone - Negative Urine Specific Novelty 1.030 Bedside Urine Occult Blood +++ Bedside Urine pH 6.0 Bedside Urine Protein ++ 100 Bedside Urine Urobilinogen - Negative Bedside Urine Nitrite - Negative Bedside Urine Leukocytes - Negative Esterase Discharge Plan Departure Patient Disposition: Home Clinical Impression: Left ureteral stone Instructions: DI for Kidney Stones Activity Restrictions/Additional Instructions: Thank you for trusting us with your care today. As discussed, your imaging revealed a stone in your left ureter that is 4 x 3 mm. I sent 3 prescriptions to [facility]. Tamsulosin Flomax. Ondansetron for nausea, and [place] for pain. Please follow-up with primary care provider. Please push fluids over the next few days. I have also given you contact information to Dr. Robles, the urologist at [facility]. I have ccd him a copy of your note as well as her primary care provider. Please come back to emergency department for any acute concerns such as inability keep down fluids, abdominal pain with fever, if you have any signs of urinary tract infection etcetera I have given you a prescription of a narcotic for pain. Be aware that this can be constipating and sedating. I encouraged taking with a stool softener, pushing fluids and fiber. Do not take and drive, operate heavy machinery, etc. Do not combine it with any other sedating substances such as alcohol. The combination of narcotics and alcohol and/or other sedatives can be lethal. Please be aware that we do not provide refills of controlled substances in the emergency department. Please follow up with her primary care provider. Prescriptions: New hydrocodone-acetaminophen [[place]] 5-325 mg tablet 1 tab PO Q4-6H PRN (Reason: pain) Qty: 10 RF: 0 ondansetron 4 mg tablet,disintegrating 4 mg PO Q6H PRN (Reason: nausea and vomiting) Qty: 20 RF: 0 tamsulosin 0.4 mg capsule 0.4 mg PO BEDTIME Qty: 7 RF: 0 No Action lisinopril 40 mg tablet 40 mg PO DAILY Qty: 90 RF: 2 meloxicam [Mobic] 7.5 mg tablet 7.5 mg PO BID Qty: 180 RF: 2 gabapentin 300 mg capsule 300 mg PO BEDTIME Qty: 90 RF: 1 verapamil 180 mg capsule,ext rel. pellets 24 hr 180 mg PO DAILY Qty: 90 RF: 0 aspirin 81 mg tablet,delayed release (DR/EC) 81 mg PO DAILY RF: 0 allopurinol 300 mg tablet 300 mg PO DAILY Qty: 90 RF: 3 tamsulosin [Flomax] 0.4 mg capsule 0.4 mg PO DAILY Qty: 30 RF: 0 infliximab [Remicade] 100 mg recon soln See Rx Instructions .ROUTE .COMPLEX RF: 0 cholecalciferol (vitamin D3) 1,000 unit/drop drops 2,000 unit PO DAILY RF: 0 Referrals: Devorah Robles MD [Physician] - Gilberto Brown DO [Primary Care Provider] - <Marie Hudson MD - Last Filed: 08/11/20 07:29> Cosign ED Attending Cosignature Attestation: I was immediately available in the department for consultation throughout this patient's visit. I agree with documentation as above. Marie Hudson MD
[2020-08-09 14:43] LABS: Bacteria Urine None Seen
[2020-08-09 14:45] LABS: Alanine Aminotransferase 37 IU/L (<50); Albumin 4.2 g/dL (3.5-5.0); Albumin Globulin Ratio 1.3 (1.0-2.8); Alkaline Phosphatase 63 U/L (38-126); Aspartate Aminotransferase 31 IU/L (17-59); BUN Creatinine Ratio 20.8 (6-22); Bilirubin Total 0.5 mg/dL (0.2-1.3); Blood Urea Nitrogen 22 mg/dL (9-20); Calcium 9.4 mg/dL (8.4-10.2); Carbon Dioxide 29 mmol/L (22-32); Chloride 105 mmol/L (98-107); Estimated Glomerular Filt Rate > 60.0 mL/min (>60); Globulin 3.2 g/dL (1.7-4.1); Glucose 125 mg/dL (80-110); HEMOLYSIS < 15 (0-50); Magnesium 1.8 mg/dL (1.6-2.3); Potassium 4.1 mmol/L (3.4-5.1); Sodium 137 mmol/L (137-145); Total Protein 7.4 g/dL (6.3-8.2)
[2020-08-09 14:51] LABS: Add Manual Diff / Slide Review NO; Basophils Absolute Auto 100 /uL (0-100); Basophils Percent Auto 0.7 % (0-2); Eosinophils Absolute Auto 100 /uL (0-450); Eosinophils Percent Auto 0.4 % (2-4); Hematocrit 44.9 % (41-53); Hemoglobin 14.9 g/dL (13.5-17.5); Lymphocytes Absolute Auto 1500 /uL (1100-4500); Lymphocytes Percent Auto 11.1 % (25-40); Mean Corpuscular HGB Conc 33.2 % (30-36); Mean Corpuscular Hemoglobin 31.8 PG (26-34); Mean Corpuscular Volume 95.8 fL (80-100); Monocytes Absolute Auto 700 /uL (0-900); Monocytes Percent Auto 4.9 % (3-14); Neutrophils Absolute Auto 11500 /uL (1500-7000); Neutrophils Percent Auto 82.9 % (50-75); Platelet Count 276 X10^3/uL (150-400); Red Blood Cell Count 4.69 X10^6/uL (4.5-5.9); Red Cell Distribution Width 14.4 % (11.6-14.8); White Blood Cell Count 13.8 X10^3/uL (4.5-11.0)
--- NOTE | 2020-08-09 15:22 | DI.CT.S_ITS ---
PROCEDURE: CT KIDNEY URETER BLADDER (KUB) INDICATIONS: left flank pain, hx stones TECHNIQUE: Noncontrast 5 mm thick sections acquired from the diaphragms to the symphysis. 5 mm thick coronal and sagittal reformats were then performed. For radiation dose reduction, the following was used: automated exposure control, adjustment of mA and/or kV according to patient size. COMPARISON: CT, ABDOMEN/PELVIS WITH CONTRAST, 02/15/2014, 23:12. [facility], CT, CT ABDOMEN PELVIS W CON, 12/20/2019, 16:14. FINDINGS: Image quality: Excellent. Lung bases: Small pulmonary nodules at the lung bases. For example right lower lobe 5 mm, (3/15); and left upper lobe inferiorly 5 mm, (3/1); and left lower lobe 4 mm, (3/20). Many of these pulmonary nodules are seen dating back to 2013 suggesting a benign etiology. Heart size is normal. Gynecomastia. Urinary system: Both kidneys are normal in size. Obstructing calculus at the left UVJ measuring 4 x 3 mm, (), the stone has moved distally compared to the CT from November 2019. Mild left hydroureteronephrosis, increased. Stranding surrounding the left kidney, increased. No additional kidney stones. No calcified bladder stones. Bladder evaluation is somewhat limited by beam hardening artifact. Other solid organs: Liver is normal in size. Gallbladder is unremarkable. Pancreas is normal in contours. Spleen is normal in size. No adrenal nodules. Peritoneum and bowel: Gastric band which remains below the diaphragm. Unenhanced bowel loops demonstrate normal wall thickness and caliber. No free fluid or air. Nodes and vessels: No retroperitoneal or mesenteric adenopathy by size criteria. Low-density area of heterogeneity in the right lower quadrant mesenteric fat, (), unchanged and may be due to fat necrosis or the sequelae of prior epiploic appendagitis. This may be faintly visualized on the CT from 2013. Aorta and inferior vena cava are normal in caliber. Mild calcified atherosclerotic plaque. Abdominal wall: Small fat containing periumbilical hernia. Pelvis: No free pelvic fluid. No inguinal hernias or adenopathy. Bones: No suspicious bony lesions. No vertebral body compression fractures. IMPRESSION: 1. Obstructing calculus at the left UVJ measuring 4 x 3 mm. The stone has moved distally compared to November 2019. Mild left hydroureteronephrosis which is increased. 2. No additional kidney stones. 3. Small pulmonary nodules at the lung bases are again seen. Many of the nodules are seen on the CT from 2013 and are similar in size suggesting a benign etiology. Dictated by: Mli Vazquez M.D. on 08/09/2020 at 15:26 Approved by: Mil Vazquez M.D. on 08/09/2020 at 15:41
[2020-08-09 15:24] LABS: Amorphous Sediment Urine 1+; Calcium Oxalate Crystals Urine Few; RBC Urine 1-5/HPF (0-5/HPF); Squamous Epithelial Cell Urine 0-1 /HPF (0-5/HPF); WBC Urine 0-1/HPF (0-5/HPF)
[2020-08-09 15:25] LABS: Culture Indicated Urine Cult Not Indicated; Mucus Urine 1+ (Negative)
[2020-08-09] MEDS: MORPHINE 4 MG/ML INJ IV (15:35)
[2020-08-09] MEDS: SODIUM CHLORIDE 0.9% 1,000 ML 1000 ML IV (15:38)
[2020-08-09] MEDS: TAMSULOSIN 0.4 MG CAPSULE PO (17:25)
[2020-08-09] MEDS: ONDANSETRON 4 MG ODT PREPACK 1 BOTTLE MISC (17:46)
[2020-08-09] MEDS: HYDROCODONE/ACET 5/325 PREPACK 1 BOTTLE MISC (17:46)
[2020-08-09 17:52] VITALS: BP 147/72; PULSE 69; RESP 14; O2SAT 98
[2020-08-09 18:15] VITALS: TEMP 36.7
== END 2020-08-09 18:15 | disposition home or self-care (01) ==
PROVIDERS: Emergency Provider Nurse Practitioner Family; PCP Family Medicine
DX: N20.1 Calculus of ureter (principal); R11.0 Nausea; I10 Essential (primary) hypertension; Z87.442 Personal history of urinary calculi
CPT/HCPCS: 36415; 51798; 74176; 80053; 81003; 81015; 83735; 85025; 96361; 96374; 96375; 96376; 99283; 99284; J2270; J2405

== ENCOUNTER → 2020-10-14 12:25 | Outpatient (CLI) | payer BC, SELFPAY ==
--- NOTE | 2020-10-14 12:26 | DI.RAD.S_ITS ---
PROCEDURE: XR KUB INDICATIONS: kidney stones TECHNIQUE: One view of the abdomen acquired. COMPARISON: [facility], CT, CT KIDNEY URETER BLADDER (KUB), 08/09/2020, 15:25. FINDINGS: Surgical changes and devices: Bilateral hip arthroplasties. Bowel: Bowel gas pattern is normal. Soft tissues: No suspicious abdominal calcifications. Visualized solid organ contours appear normal in size. Gastric band is noted. Bones: No suspicious bony lesions. IMPRESSION: No obstruction. No free air. Dictated by: Gracia Askew M.D. on 10/14/2020 at 15:17 Approved by: Gracia Askew M.D. on 10/14/2020 at 15:18
== END ==
PROVIDERS: PCP Family Medicine; Referring Provider Specialist; Visit Provider Specialist
DX: N20.0 Calculus of kidney (principal)
CPT/HCPCS: 74018

== ENCOUNTER → 2020-10-26 12:00 | Outpatient (CLI) | payer BC, SELFPAY ==
--- NOTE | 2020-10-26 12:01 | DI.CT.S_ITS ---
PROCEDURE: CT PEL WO CON INDICATIONS: L distal ureteral stone TECHNIQUE: After the administration of oral contrast, 5 mm thick sections acquired from the iliac crests to the symphysis. 5 mm coronal and sagittal reformats were then performed. For radiation dose reduction, the following was used: automated exposure control, adjustment of mA and/or kV according to patient size. Metal reduction software was used. COMPARISON: [facility], CT, CT ABDOMEN PELVIS W CON, 12/20/2019, 16:14. [facility], CR, XR KUB, 10/14/2020, 12:25. [facility], CT, CT KIDNEY URETER BLADDER (KUB), 08/09/2020, 15:25. FINDINGS: Image quality: Excellent. Peritoneum and bowel: Bowel loops demonstrate normal wall thickness and caliber. No free fluid or air. Tubing for laparoscopic gastric band partially imaged. Genitourinary: Left hydroureter has resolved. Left distal ureteral stone is no longer identified. The urinary bladder is decompressed and there are no calcified bladder stones. Bladder wall thickness is normal. Nodes and vessels: No iliac, pelvic, or inguinal adenopathy by size criteria. Iliac vessels demonstrate normal size. Bones: No suspicious bony lesions. Bilateral hip arthroplasties resulting in pelvic beam hardening artifact. Pelvic ring and hip joints appear intact. Degenerative changes in the lumbar spine. Miscellaneous: No inguinal hernias. Tiny fat containing umbilical hernia. IMPRESSION: 1. Probable passage of left distal ureteral calculus. 2. Interval resolution of left hydroureter and perinephric inflammation. Dictated by: Aline Lam M.D. on 10/26/2020 at 15:08 Approved by: Aline Lam M.D. on 10/26/2020 at 15:14
== END ==
PROVIDERS: PCP Family Medicine; Referring Provider Specialist; Visit Provider Specialist
DX: N20.1 Calculus of ureter (principal)
CPT/HCPCS: 72192

== ENCOUNTER → 2020-12-07 07:08 | Outpatient (CLI) | payer BC, SELFPAY ==
[2020-12-07 07:42] LABS: Add Manual Diff / Slide Review NO; Basophils Absolute Auto 100 /uL (0-100); Basophils Percent Auto 1.2 % (0-2); Eosinophils Absolute Auto 400 /uL (0-450); Eosinophils Percent Auto 5.2 % (2-4); Hematocrit 44.1 % (41-53); Hemoglobin 14.9 g/dL (13.5-17.5); Lymphocytes Absolute Auto 2600 /uL (1100-4500); Lymphocytes Percent Auto 37.8 % (25-40); Mean Corpuscular HGB Conc 33.8 % (30-36); Mean Corpuscular Hemoglobin 32.3 PG (26-34); Mean Corpuscular Volume 95.6 fL (80-100); Monocytes Absolute Auto 700 /uL (0-900); Monocytes Percent Auto 9.4 % (3-14); Neutrophils Absolute Auto 3200 /uL (1500-7000); Neutrophils Percent Auto 46.4 % (50-75); Platelet Count 281 X10^3/uL (150-400); Red Blood Cell Count 4.61 X10^6/uL (4.5-5.9); Red Cell Distribution Width 14.6 % (11.6-14.8)
[2020-12-07 08:00] LABS: Alanine Aminotransferase 40 IU/L (<50); Albumin 4.1 g/dL (3.5-5.0); Albumin Globulin Ratio 1.3 (1.0-2.8); Alkaline Phosphatase 53 U/L (38-126); Aspartate Aminotransferase 33 IU/L (17-59); BUN Creatinine Ratio 24.4 (6-22); Bilirubin Total 0.3 mg/dL (0.2-1.3); Blood Urea Nitrogen 21 mg/dL (9-20); Calcium 9.2 mg/dL (8.4-10.2); Carbon Dioxide 28 mmol/L (22-32); Chloride 107 mmol/L (98-107); Cholesterol 198 mg/dL (140-199); Estimated Glomerular Filt Rate > 60.0 mL/min (>60); Globulin 3.2 g/dL (1.7-4.1); Glucose 92 mg/dL (80-110); HDL Cholesterol 51 mg/dL (40-60); HEMOLYSIS < 15 (0-50); LDL Cholesterol Calculated 121 mg/dL (<100); Potassium 4.3 mmol/L (3.4-5.1); Sodium 141 mmol/L (137-145); Total Protein 7.3 g/dL (6.3-8.2); Triglycerides 128 mg/dL (35-150); Uric Acid 5.5 mg/dL (3.5-8.5)
[2020-12-07 08:14] LABS: Vitamin D 25 Hydroxy (D3) 43.4 ng/mL (30.0-100.0)
== END ==
PROVIDERS: PCP Registered Nurse; Referring Provider Registered Nurse; Visit Provider Registered Nurse
DX: G62.9 Polyneuropathy, unspecified (principal)
CPT/HCPCS: 36415; 80053; 80061; 82306; 84550; 85025

== ENCOUNTER → 2021-04-29 07:34 | Outpatient (CLI) | payer BC, SELFPAY ==
[2021-04-29 08:36] LABS: Alanine Aminotransferase 25 IU/L (<50); Albumin 4.1 g/dL (3.5-5.0); Albumin Globulin Ratio 1.4 (1.0-2.8); Alkaline Phosphatase 58 U/L (38-126); Aspartate Aminotransferase 23 IU/L (17-59); Bilirubin Total 0.4 mg/dL (0.2-1.3); Bilirubin Unconjugated 0.2 mg/dL (0.0-1.1); HEMOLYSIS < 15 (0-50); Total Protein 7.1 g/dL (6.3-8.2)
[2021-05-06 09:34] LABS: QuantiFERON Mitogen Value >10.00 IU/mL (.); QuantiFERON Nil Value 0.08 IU/mL (.); QuantiFERON TB Gold Plus Negative (Negative); QuantiFERON TB1 Ag Value 0.09 IU/mL (.); QuantiFERON TB2 Ag Value 0.12 IU/mL (.)
== END ==
PROVIDERS: PCP Registered Nurse; Referring Provider Physician Assistant; Visit Provider Physician Assistant
DX: K51.90 Ulcerative colitis, unspecified, without complications (principal)
CPT/HCPCS: 36415; 80076; 86480

== ENCOUNTER → 2021-12-06 07:07 | Outpatient (CLI) | payer BC, SELFPAY ==
[2021-12-06 08:11] LABS: Microalbumin Urine Random 4.1 mg/dL (0-1.6)
[2021-12-06 09:15] LABS: Add Manual Diff / Slide Review NO; Basophils Absolute Auto 100 /uL (0-100); Basophils Percent Auto 0.9 % (0-2); Eosinophils Absolute Auto 400 /uL (0-450); Eosinophils Percent Auto 6.4 % (2-4); Hematocrit 46.1 % (41-53); Hemoglobin 15.4 g/dL (13.5-17.5); Lymphocytes Absolute Auto 3100 /uL (1100-4500); Lymphocytes Percent Auto 44.3 % (25-40); Mean Corpuscular HGB Conc 33.4 % (30-36); Mean Corpuscular Hemoglobin 32.3 PG (26-34); Mean Corpuscular Volume 96.6 fL (80-100); Monocytes Absolute Auto 700 /uL (0-900); Monocytes Percent Auto 10.1 % (3-14); Neutrophils Absolute Auto 2700 /uL (1500-7000); Neutrophils Percent Auto 38.3 % (50-75); Platelet Count 268 X10^3/uL (150-400); Red Blood Cell Count 4.77 X10^6/uL (4.5-5.9)
[2021-12-06 09:46] LABS: Alanine Aminotransferase 30 IU/L (<50); Albumin 4.3 g/dL (3.5-5.0); Albumin Globulin Ratio 1.2 (1.0-2.8); Alkaline Phosphatase 49 U/L (38-126); Aspartate Aminotransferase 25 IU/L (17-59); BUN Creatinine Ratio 25.6 (6-22); Bilirubin Total 0.6 mg/dL (0.2-1.3); Blood Urea Nitrogen 23 mg/dL (9-20); Calcium 9.1 mg/dL (8.4-10.2); Carbon Dioxide 29 mmol/L (22-32); Chloride 107 mmol/L (98-107); Cholesterol 216 mg/dL (140-199); Estimated Glomerular Filt Rate > 60.0 mL/min (>60); Globulin 3.6 g/dL (1.7-4.1); Glucose 89 mg/dL (80-110); HDL Cholesterol 63 mg/dL (40-60); HEMOLYSIS < 15 (0-50); LDL Cholesterol Calculated 132 mg/dL (<100); Potassium 4.4 mmol/L (3.4-5.1); Sodium 142 mmol/L (137-145); Total Protein 7.9 g/dL (6.3-8.2); Triglycerides 105 mg/dL (35-150); Uric Acid 5.3 mg/dL (3.5-8.5)
[2021-12-06 15:57] LABS: Microalbumi Creatinin Ratio Ur 13.7 ug/mg CR (<30)
== END ==
PROVIDERS: PCP Family Medicine; Referring Provider Family Medicine; Visit Provider Family Medicine
DX: M10.9 Gout, unspecified (principal); E78.5 Hyperlipidemia, unspecified; I10 Essential (primary) hypertension; G47.33 Obstructive sleep apnea (adult) (pediatric); N20.1 Calculus of ureter
CPT/HCPCS: 36415; 80053; 80061; 82043; 82570; 84550; 85025

== ENCOUNTER → 2022-06-09 13:11 | Outpatient (CLI) | payer BC, SELFPAY ==
[2022-06-09 13:52] LABS: Add Manual Diff / Slide Review NO; Basophils Absolute Auto 100 /uL (0-100); Basophils Percent Auto 0.9 % (0-2); Eosinophils Absolute Auto 300 /uL (0-450); Eosinophils Percent Auto 4.5 % (2-4); Hematocrit 43.3 % (41-53); Hemoglobin 14.9 g/dL (13.5-17.5); Lymphocytes Absolute Auto 2300 /uL (1100-4500); Lymphocytes Percent Auto 31.3 % (25-40); Mean Corpuscular HGB Conc 34.5 % (30-36); Mean Corpuscular Hemoglobin 33.1 PG (26-34); Mean Corpuscular Volume 95.8 fL (80-100); Monocytes Absolute Auto 700 /uL (0-900); Monocytes Percent Auto 9.6 % (3-14); Neutrophils Absolute Auto 3900 /uL (1500-7000); Neutrophils Percent Auto 53.7 % (50-75); Platelet Count 272 X10^3/uL (150-400); Red Blood Cell Count 4.52 X10^6/uL (4.5-5.9); Red Cell Distribution Width 14.3 % (11.6-14.8); White Blood Cell Count 7.3 X10^3/uL (4.5-11.0)
[2022-06-09 14:02] LABS: Alanine Aminotransferase 37 IU/L (<50); Albumin Globulin Ratio 1.1 (1.0-2.8); Alkaline Phosphatase 50 U/L (38-126); Aspartate Aminotransferase 30 IU/L (17-59); BUN Creatinine Ratio 22.9 (6-22); Bilirubin Total 0.4 mg/dL (0.2-1.3); Blood Urea Nitrogen 24 mg/dL (9-20); C-Reactive Protein Quant 0.8 mg/dL (<1.0); Carbon Dioxide 28 mmol/L (22-32); Chloride 103 mmol/L (98-107); Estimated Glomerular Filt Rate > 60 mL/min (>60); Globulin 3.6 g/dL (1.7-4.1); Glucose 129 mg/dL (80-110); HEMOLYSIS 29 (0-50); Potassium 4.4 mmol/L (3.4-5.1); Sodium 138 mmol/L (137-145); Total Protein 7.6 g/dL (6.3-8.2)
[2022-06-09 14:19] LABS: Erythrocyte Sedimentation Rate 9 MM/HR (0-15)
== END ==
PROVIDERS: PCP Family Medicine; Referring Provider Internal Medicine Gastroenterology; Visit Provider Internal Medicine Gastroenterology
DX: K51.00 Ulcerative (chronic) pancolitis without complications (principal)
CPT/HCPCS: 36415; 80053; 85025; 85651; 86140

== ENCOUNTER 2022-07-15 15:54 | Emergency (ER) | payer BC, SELFPAY ==
[2022-07-15 16:37] VITALS: BP 210/108; PULSE 78; RESP 17; TEMP 36.1; O2SAT 95
--- NOTE | 2022-07-15 16:58 | DI.CT.S_ITS ---
PROCEDURE: CT KIDNEY URETER BLADDER (KUB) INDICATIONS: abd pain TECHNIQUE: Axial sections were acquired from the lung bases to the pubic symphysis. Coronal and sagittal reformats were performed. For radiation dose reduction, the following was used: automated exposure control, adjustment of mA and/or kV according to patient size. COMPARISON: [facility], CT, CT KIDNEY URETER BLADDER (KUB), 08/09/2020, 15:25. FINDINGS: Image quality: Portions of the lower pelvis are suboptimally evaluated secondary to metallic streak artifact from hip arthroplasty. Lung bases: 3 mm right upper lobe nodule series 3, image 6. It is unchanged. 3 mm right lower lobe nodule series 3, image 11 as well as 2 mm left lower lobe nodule series 3, image 16 also unchanged. Heart: No significant findings. URINARY: Right Kidney: No stones or hydronephrosis. Right Ureter: No hydroureter. Left Kidney: Mild hydronephrosis. No stones. Left Ureter: Mild hydroureter. Bladder: Normal wall thickness. Identified at the left ureterovesicular junction unchanged from prior exam. However, there is significant metallic streak artifact from hip arthroplasties in the distal left ureter as well as significant portions of the bladder are obscured. ABDOMEN: Liver: Unremarkable. Gallbladder: Unremarkable. Biliary ducts: Unremarkable. Pancreas: Unremarkable. Spleen: Unremarkable. Adrenal Glands: Unremarkable. Stomach and Bowel: Small bowel loops, and colon are unremarkable. Gastric bypass changes are present. Peritoneum: No abnormal intraperitoneal fluid. No free air. Ventral Wall: Trace fat containing hernia. Abdominal Nodes: No enlarged retroperitoneal or mesenteric lymph nodes. Vessels: Aorta and inferior vena cava are normal in size. PELVIS: Pelvic Organs: Unremarkable. Pelvic Nodes: Unremarkable. Miscellaneous: No inguinal hernias are seen. Bones: Unremarkable. IMPRESSION: Mild left hydronephrosis and hydroureter with incomplete visualization of the distal left ureter as well as bladder secondary to metallic streak artifact. There is felt to be a distal ureteral or recently passed bladder stone given hydronephrosis and hydroureter. Dictated by: Gracia Askew M.D. on 07/15/2022 at 17:39 Approved by: Gracia Askew M.D. on 07/15/2022 at 17:42
[2022-07-15] MEDS: KETOROLAC 30 MG/ML VIAL 15 MG IV (17:02)
[2022-07-15 17:14] LABS: Add Manual Diff / Slide Review NO; Basophils Absolute Auto 200 /uL (0-100); Basophils Percent Auto 1.5 % (0-2); Eosinophils Absolute Auto 100 /uL (0-450); Eosinophils Percent Auto 0.9 % (2-4); Hematocrit 45.8 % (41-53); Hemoglobin 15.7 g/dL (13.5-17.5); Lymphocytes Absolute Auto 900 /uL (1100-4500); Mean Corpuscular HGB Conc 34.4 % (30-36); Mean Corpuscular Volume 95.9 fL (80-100); Monocytes Absolute Auto 200 /uL (0-900); Monocytes Percent Auto 1.9 % (3-14); Neutrophils Absolute Auto 8800 /uL (1500-7000); Neutrophils Percent Auto 86.7 % (50-75); Platelet Count 289 X10^3/uL (150-400); Red Blood Cell Count 4.77 X10^6/uL (4.5-5.9); Red Cell Distribution Width 14.2 % (11.6-14.8); White Blood Cell Count 10.1 X10^3/uL (4.5-11.0)
[2022-07-15 17:29] LABS: RBC Urine >100/HPF (0-5/HPF); Squamous Epithelial Cell Urine 0-1 /HPF (0-5/HPF); WBC Urine 1-5/HPF (0-5/HPF)
[2022-07-15 17:30] LABS: Bacteria Urine Few (2-10); Culture Indicated Urine Specimen Cultured
[2022-07-15 17:35] LABS: Alanine Aminotransferase 43 IU/L (<50); Albumin 4.4 g/dL (3.5-5.0); Albumin Globulin Ratio 1.1 (1.0-2.8); Alkaline Phosphatase 60 U/L (38-126); Aspartate Aminotransferase 31 IU/L (17-59); BUN Creatinine Ratio 23.5 (6-22); Bilirubin Total 0.4 mg/dL (0.2-1.3); Blood Urea Nitrogen 23 mg/dL (9-20); Calcium 9.9 mg/dL (8.4-10.2); Carbon Dioxide 27 mmol/L (22-32); Chloride 100 mmol/L (98-107); Estimated Glomerular Filt Rate > 60 mL/min (>60); Globulin 3.9 g/dL (1.7-4.1); Glucose 115 mg/dL (80-110); HEMOLYSIS < 15 (0-50); Lipase 48 U/L (23-300); Potassium 5.1 mmol/L (3.4-5.1); Sodium 139 mmol/L (137-145); Total Protein 8.3 g/dL (6.3-8.2)
[2022-07-15 21:01] VITALS: BP 190/97; PULSE 74; PULSE 77; RESP 16; O2SAT 96; O2SAT 99
[2022-07-15] MEDS: SODIUM CHLORIDE 0.9% 1,000 ML 1000 ML IV (21:12)
--- NOTE | 2022-07-15 21:15 | ED.GENADULT ---
HPI - General Adult General Chief complaint: Abdominal Pain Stated complaint: Thinks passing kidney stone, Blood in urine Time Seen by Provider: 07/15/22 21:14 Source: patient Mode of arrival: Ambulatory History of Present Illness HPI narrative: 66-year-old gentleman with a history of gout, hypertension, chronic pain, ulcerative colitis currently on Humira and kidney stones presents with left-sided flank lower quadrant and groin pain. Pain started around noon today and he describes it as a crampy pain initially in the pelvis that then localized to the left groin. Proximally 2:00 p.m. he noticed grossly bloody urine and increasing pain. Came to the emergency room for further evaluation. Notes that he has not recently had any fever, cough, chills. He had a bit of nausea with the pain but actually vomiting. He typically has loose stools because of his ulcerative colitis has not been having any blood. No headaches, chest pain, palpitations or lower extremity edema. In the past he states that he has passed kidney stones as because 5 cm without difficulty. His most recent kidney stone was about a year ago. Related Data Home Medications Medication Instructions Recorded Confirmed infliximab 100 mg intravenous See Rx Instructions .Route .COMPLEX 01/24/18 02/19/21 solution (Remicade) cholecalciferol (vitamin D3) 25 2,000 unit PO DAILY 02/14/18 02/19/21 mcg/drop (1,000 unit/drop) oral drops aspirin 81 mg tablet,delayed 81 mg PO DAILY 02/11/19 07/15/22 release Previous Rx's Medication Instructions Recorded ciclopirox 0.77 % topical gel 1 applic topical BID onychomycosis 02/19/21 toes 4 weeks #30 grams allopurinol 300 mg tablet 300 mg PO DAILY #90 tabs 12/05/21 lisinopril 40 mg tablet 40 mg PO DAILY #90 tabs 12/05/21 verapamil 180 mg 24 hr See Rx Instructions .Route 04/26/22 capsule,extended release .COMPLEX #90 caps meloxicam 7.5 mg tablet 7.5 mg PO BID #180 tabs 05/13/22 gabapentin 300 mg capsule See Rx Instructions .Route 06/10/22 .COMPLEX #180 caps oxycodone-acetaminophen 5 mg-325 1 tab PO Q6H PRN pain #14 tabs 07/15/22 mg tablet tamsulosin 0.4 mg capsule 0.4 mg PO DAILY #20 caps 07/15/22 Allergies Allergy/AdvReac Type Severity Reaction Status Date / Time Sulfa (Sulfonamide Allergy Intermediate RASH Verified 07/15/22 16:40 Antibiotics) [SULFA (SULFONAMIDE ANTIBIOTICS)] Review of Systems Review of Systems Narrative: Remainder of complete review of systems is otherwise unremarkable except for that included in the HPI. Patient History Medical History Anxiety about health BPH w/o urinary obs/LUTS Chicken pox Chronic post-traumatic headache Gout (~1996) Hearing loss (~1977) Hypertension (~2004) Left ureteral calculus Morbid obesity with body mass index (BMI) of 40.0 to 49.9 Obstructive sleep apnea syndrome (~1997) Onychomycosis Pulmonary nodule less than 1 cm in diameter with low risk for malignant neoplasm Renal calculi Seasonal allergies Tinnitus (~1977) Ulcerative colitis (~1999) Vitamin D deficiency Surgical History Anesthesia History of circumcision History of craniotomy (~2015) History of left hip replacement (~2016) History of right hip replacement (~2014) History of sinus surgery Status post right rotator cuff repair (~2004) Family History Father Multiple sclerosis Brother Diabetes mellitus Hypertension Sleep apnea Kidney stones Mother Congestive heart failure Heart disease Thyroid disorder Grandfather Stroke Grandmother Diabetes mellitus Social History marital status: number of children: 2 occupational status: previously employed Smoking Status: Former smoker alcohol intake: never caffeine: Yes Smoking Status: Former smoker alcohol intake frequency: other Substance Use Type: does not use Exam Initial Vital Signs Initial Vital Signs: Vital Signs Temperature 97 F L 07/15/22 16:37 Pulse Rate 78 07/15/22 16:37 Respiratory Rate 17 07/15/22 16:37 Blood Pressure 210/108 H 07/15/22 16:37 Pulse Oximetry 95 07/15/22 16:37 Oxygen Delivery Method 07/15/22 16:37 General: Healthy appearing, in no acute distress. Able to give a complete and coherent history. Well-nourished well-developed HEENT: Moist mucous membranes, normal sclera with reactive pupils, Neck: No JVD, supple Respiratory: Lungs are clear to auscultation, no wheezing no rales no rhonchi. Full and symmetrical air movement Cardiac: Regular rate and rhythm no murmurs no bruits Abdomen: Soft, mild left lower quadrant/groin pain without rebound or guarding good bowel tones, no flank pain Skin: Warm and dry, no rashes Neurologic: Grossly neurologically intact with no obvious asymmetries or abnormalities Extremities: No trauma, well perfused Psych: Cooperative, appropriate insight and affect Course Orders Ordered: ED Orders 07/15/22 16:30 Urine Culture Stat Urine Microscopic Stat 07/15/22 16:55 Complete Blood Count AUTO DIFF Stat Comprehensive Metabolic Panel Stat Lipase Stat 07/15/22 16:58 CT kidney ureter bladder (KUB) Stat Hydromorphone HCl (Hydromorphone 0.5 Mg Inj) 0.5 mg IV Q15MIN PRN PRN Reason: Pain, Last Admin: 07/15/22 21:18 Dose: 0.5 mg Discontinued Medications Sodium Chloride (Normal Saline 0.9%) 1,000 mls @ 1,000 mls/hr IV BOLUS ONE Stop: 07/15/22 17:58 Last Admin: 07/15/22 21:12 Dose: 1,000 mls/hr Documented By: CLINT Ketorolac Tromethamine (Ketorolac 30 Mg/Ml Vial) 15 mg IV NOW ONE Stop: 07/15/22 16:59 Last Admin: 07/15/22 17:02 Dose: 15 mg Documented By: PHILIPPE Ondansetron HCl (Ondansetron 4 Mg/2 Ml Inj) 4 mg IV NOW ONE Stop: 07/15/22 21:16 Last Admin: 07/15/22 21:18 Dose: 4 mg Oxycodone/Acetaminophen (Oxycodone/Apap 5/325 Prepack) 1 bottle MISC SEEINSTR ONE Stop: 07/15/22 21:39 Last Admin: 07/15/22 21:47 Dose: 1 bottle Tamsulosin HCl (Tamsulosin 0.4 Mg Capsule) 0.4 mg PO NOW ONE Stop: 07/15/22 21:39 Last Admin: 07/15/22 21:47 Dose: 0.4 mg Vital Signs Vital signs: Vital Signs - 8 hr 07/15/22 16:37 07/15/22 21:01 07/15/22 21:01 Temperature 97 F L Pulse Rate 78 77 74 Respiratory Rate 17 16 Blood Pressure 210/108 H 190/97 H Pulse Oximetry 95 99 96 Oxygen Delivery Method Room Air Room Air 07/15/22 21:30 07/15/22 21:31 07/15/22 21:31 Temperature Pulse Rate 75 74 Respiratory Rate Blood Pressure 166/86 H Pulse Oximetry 96 94 Oxygen Delivery Method Medical Decision Making Lab Data Result diagrams: 07/15/22 16:55 07/15/22 16:55 Labs: Lab Results 07/15/22 07/15/22 07/15/22 Range/Units 16:30 16:55 16:55 WBC 10.1 (4.5-11.0) X10^3/uL RBC 4.77 (4.5-5.9) X10^6/uL Hgb 15.7 (13.5-17.5) g/dL Hct 45.8 (41-53) % MCV 95.9 (80-100) fL MCH 33.0 (26-34) PG MCHC 34.4 (30-36) % RDW 14.2 (11.6-14.8) % Plt Count 289 (150-400) X10^3/uL Neut % (Auto) 86.7 H (50-75) % Lymph % (Auto) 9.0 L (25-40) % [place] % (Auto) 1.9 L (3-14) % Eos % (Auto) 0.9 L (2-4) % Baso % (Auto) 1.5 (0-2) % Neut # (Auto) 8800 H (5974-8154) /uL Lymph # (Auto) 900 L (4668-2766) /uL [place] # (Auto) 200 (0-900) /uL Eos # (Auto) 100 (0-450) /uL Baso # (Auto) 200 H (0-100) /uL Sodium 139 (137-145) mmol/L Potassium 5.1 (3.4-5.1) mmol/L Chloride 100 (98-107) mmol/L Carbon Dioxide 27 (22-32) mmol/L BUN 23 H (9-20) mg/dL Creatinine 0.98 (0.66-1.25) mg/dL Estimated GFR > 60 (>60) mL/min BUN/Creatinine Ratio 23.5 H (6-22) Glucose 115 H (80-110) mg/dL Calcium 9.9 (8.4-10.2) mg/dL Total Bilirubin 0.4 (0.2-1.3) mg/dL AST 31 (17-59) IU/L ALT 43 (<50) IU/L Alkaline Phosphatase 60 (38-126) U/L Total Protein 8.3 H (6.3-8.2) g/dL Albumin 4.4 (3.5-5.0) g/dL Globulin 3.9 (1.7-4.1) g/dL Albumin/Globulin Ratio 1.1 (1.0-2.8) Lipase 48 (23-300) U/L Urine RBC >100/hpf H (0-5/HPF) Urine WBC 1-5/hpf (0-5/HPF) Ur Squamous Epith Cells 0-1 /hpf (0-5/HPF) Urine Bacteria Few (2-10) H (None) Ur Culture Indicated? Specimen cultured Urine Dip Bedside Urine Glucose Negative Bedside Urine Bilirubin - Negative Bedside Urine Ketone +/- 5 Urine Specific [place] 1.030 Bedside Urine Occult Blood +++ Bedside Urine pH 5.0 Bedside Urine Protein ++ 100 Bedside Urine Urobilinogen - Negative Bedside Urine Nitrite - Negative Bedside Urine Leukocytes +/- 15 Esterase Point of care testing: Urine Dip Bedside Urine Glucose Negative Bedside Urine Bilirubin - Negative Bedside Urine Ketone +/- 5 Urine Specific [place] 1.030 Bedside Urine Occult Blood +++ Bedside Urine pH 5.0 Bedside Urine Protein ++ 100 Bedside Urine Urobilinogen - Negative Bedside Urine Nitrite - Negative Bedside Urine Leukocytes +/- [address] scan - abdomen/pelvis: Radiologist's Impression: FINDINGS:? Image quality:? Portions of the lower pelvis are suboptimally evaluated secondary to metallic streak artifact from hip arthroplasty. ? Lung bases:? 3 mm right upper lobe nodule series 3, image 6. It is unchanged.? 3 mm right lower lobe nodule series 3, image 11 as well as 2 mm left lower lobe nodule series 3, image 16 also unchanged.? Heart:? No significant findings. ? URINARY: Right Kidney: ? No stones or hydronephrosis.? Right Ureter:? No hydroureter.? ? Left Kidney:? Mild hydronephrosis.? No stones.? Left Ureter:? Mild hydroureter. ? Bladder:? Normal wall thickness.? Identified at the left ureterovesicular junction unchanged from prior exam.? However, there is significant metallic streak artifact from hip arthroplasties in the distal left ureter as well as significant portions of the bladder are obscured. ? ABDOMEN: Liver:? Unremarkable.? ? Gallbladder:? Unremarkable.? ? Biliary ducts:? Unremarkable.? ? Pancreas:? Unremarkable.? ? Spleen:? Unremarkable.? ? Adrenal Glands:? Unremarkable.? ? ? Stomach and Bowel:? Small bowel loops, and colon are unremarkable.? Gastric bypass changes are present. Peritoneum:? No abnormal intraperitoneal fluid.? No free air.? ? Ventral Wall: ? Trace fat containing hernia.? Abdominal Nodes:? No enlarged retroperitoneal or mesenteric lymph nodes.? Vessels:? Aorta and inferior vena cava are normal in size.? ? PELVIS: Pelvic Organs:? Unremarkable.? ? Pelvic Nodes: Unremarkable. Miscellaneous: No inguinal hernias are seen. ? ? ? Bones:? Unremarkable. ? IMPRESSION:? ? Mild left hydronephrosis and hydroureter with incomplete visualization of the distal left ureter as well as bladder secondary to metallic streak artifact.? There is felt to be a distal ureteral or recently passed bladder stone given hydronephrosis and hydroureter. ? ? ? Dictated by: Gracia Askew M.D. on 07/15/2022 at 17:39 ? ? MDM Narrative Medical decision making narrative: 66-year-old gentleman with clinical presentation consistent with a kidney stone and a CT scan confirming that. Because of his hip prosthesis it is difficult to tell if he is actually pass the stone. Based on his clinical exam and the fact that his pain is returning after dose of Toradol I suspect that there is a small stone at the UVJ that has not yet fallen into the bladder. Reviewed use of Flomax until he is passed the stone, encouraged increase fluids and reviewed use of Percocet to help with pain. States that he typically has very loose stools with his ulcerative colitis so isn't particularly concerned if there bit more firm after taking narcotics. There is no sign of infection or additional complication at this point questions are answered and he is safe for discharge home Discharge Plan Departure Patient Disposition: Home Clinical Impression: Kidney stones Instructions: DI for Kidney Stones Activity Restrictions/Additional Instructions: Thank coming in today. Your CT scan confirms that you do have a kidney stone. It looks like it is almost ready to drop into your bladder. Given the size of the prior kidney stones you have successfully passed I do not expect difficulties. Please continue your meloxicam. You can also add 1-2 Percocet as needed for pain. This is a narcotic and can cause constipation. You should not be driving or operating heavy machinery while taking narcotics. I am also giving you a prescription for Flomax. I would like you to take this until you have passed your kidney stone. Once the stone is out(which may be complete resolution of your pain since you did not recognize the other stones actually passing) you do not need to continue the Flomax Prescriptions were sent to [facility] in [place] With your Humira, you are at increased risk for infection. Having infection behind a kidney stone can be life-threatening. If you are noticing fevers, chills increasing pain new findings or other concerns it would be very appropriate to return to the emergency department If you have not passed the stone by mid week, I would encourage you to follow-up with Dr. Nj, our urologist Prescriptions: New oxycodone-acetaminophen 5-325 mg tablet 1 tab PO Q6H PRN (Reason: pain) Qty: 14 0RF tamsulosin 0.4 mg capsule 0.4 mg PO DAILY Qty: 20 0RF No Action verapamil 180 mg capsule,ext rel. pellets 24 hr See Rx Instructions .ROUTE .COMPLEX Qty: 90 1RF Dose Instruction: TAKE 1 CAPSULE BY MOUTH DAILY Rx Instructions: TAKE 1 CAPSULE BY MOUTH DAILY meloxicam 7.5 mg tablet 7.5 mg PO BID Qty: 180 3RF gabapentin 300 mg capsule See Rx Instructions .ROUTE .COMPLEX Qty: 180 1RF Dose Instruction: TAKE 1 CAPSULE BY MOUTH TWICE DAILY Rx Instructions: TAKE 1 CAPSULE BY MOUTH TWICE DAILY ciclopirox 0.77 % gel 1 applic topical BID 28 Days Qty: 30 3RF aspirin 81 mg tablet,delayed release (DR/EC) 81 mg PO DAILY allopurinol 300 mg tablet 300 mg PO DAILY Qty: 90 3RF lisinopril 40 mg tablet 40 mg PO DAILY Qty: 90 3RF infliximab [Remicade] 100 mg recon soln See Rx Instructions .ROUTE .COMPLEX Rx Instructions: every 8 weeks, weight based cholecalciferol (vitamin D3) 1,000 unit/drop drops 2,000 unit PO DAILY Referrals: Virginia Gilbert MD [Primary Care Provider] - Devorah Robles MD [Physician] -
[2022-07-15] MEDS: HYDROMORPHONE 0.5 MG INJ IV (21:18)
[2022-07-15] MEDS: ONDANSETRON 4 MG/2 ML INJ IV (21:18)
[2022-07-15 21:30] VITALS: PULSE 75; O2SAT 96
[2022-07-15 21:31] VITALS: BP 166/86; PULSE 74; O2SAT 94
[2022-07-15] MEDS: TAMSULOSIN 0.4 MG CAPSULE PO (21:47)
[2022-07-15] MEDS: OXYCODONE/APAP 5/325 PREPACK 1 BOTTLE MISC (21:47)
== END 2022-07-15 22:00 | disposition home or self-care (01) ==
PROVIDERS: Emergency Medicine; Emergency Provider Emergency Medicine; PCP Family Medicine
DX: N20.0 Calculus of kidney (principal); Z96.643 Presence of artificial hip joint, bilateral
CPT/HCPCS: 36415; 74176; 80053; 81003; 81015; 83690; 85025; 87086; 96361; 96374; 96375; 99284; J1170; J1885; J2405

== ENCOUNTER → 2022-08-09 10:27 | Outpatient (CLI) | payer MEDICARE, BC, SELFPAY ==
[2022-08-09 11:06] LABS: Add Manual Diff / Slide Review NO; Basophils Absolute Auto 0 /uL (0-100); Basophils Percent Auto 0.2 % (0-2); Eosinophils Absolute Auto 300 /uL (0-450); Eosinophils Percent Auto 3.6 % (2-4); Hematocrit 45.4 % (41-53); Hemoglobin 15.6 g/dL (13.5-17.5); Lymphocytes Absolute Auto 2500 /uL (1100-4500); Lymphocytes Percent Auto 32.4 % (25-40); Mean Corpuscular HGB Conc 34.4 % (30-36); Mean Corpuscular Hemoglobin 32.7 PG (26-34); Monocytes Absolute Auto 700 /uL (0-900); Monocytes Percent Auto 9.5 % (3-14); Neutrophils Absolute Auto 4100 /uL (1500-7000); Neutrophils Percent Auto 54.3 % (50-75); Platelet Count 279 X10^3/uL (150-400); Red Blood Cell Count 4.77 X10^6/uL (4.5-5.9); Red Cell Distribution Width 14.3 % (11.6-14.8); White Blood Cell Count 7.6 X10^3/uL (4.5-11.0)
[2022-08-09 11:21] LABS: Alanine Aminotransferase 33 IU/L (<50); Albumin 4.2 g/dL (3.5-5.0); Albumin Globulin Ratio 1.2 (1.0-2.8); Alkaline Phosphatase 57 U/L (38-126); Aspartate Aminotransferase 24 IU/L (17-59); Bilirubin Total 0.3 mg/dL (0.2-1.3); Blood Urea Nitrogen 17 mg/dL (9-20); C-Reactive Protein Quant 0.9 mg/dL (<1.0); Carbon Dioxide 26 mmol/L (22-32); Chloride 104 mmol/L (98-107); Estimated Glomerular Filt Rate > 60 mL/min (>60); Globulin 3.6 g/dL (1.7-4.1); Glucose 87 mg/dL (80-110); HEMOLYSIS < 15 (0-50); Potassium 4.4 mmol/L (3.4-5.1); Sodium 139 mmol/L (137-145); Total Protein 7.8 g/dL (6.3-8.2)
[2022-08-09 11:25] LABS: Erythrocyte Sedimentation Rate 9 MM/HR (0-15)
== END ==
PROVIDERS: PCP Family Medicine; Referring Provider Internal Medicine Gastroenterology; Visit Provider Internal Medicine Gastroenterology
DX: K51.00 Ulcerative (chronic) pancolitis without complications (principal)
CPT/HCPCS: 36415; 80053; 85025; 85651; 86140

== ENCOUNTER → 2022-11-07 07:10 | Outpatient (CLI) | payer MEDICARE, BC, SELFPAY ==
[2022-11-07 08:08] LABS: Add Manual Diff / Slide Review NO; Basophils Absolute Auto 100 /uL (0-100); Basophils Percent Auto 1.4 % (0-2); Eosinophils Absolute Auto 300 /uL (0-450); Eosinophils Percent Auto 4.6 % (2-4); Hematocrit 43.8 % (41-53); Hemoglobin 14.9 g/dL (13.5-17.5); Lymphocytes Absolute Auto 2900 /uL (1100-4500); Lymphocytes Percent Auto 39.4 % (25-40); Mean Corpuscular Hemoglobin 32.6 PG (26-34); Monocytes Absolute Auto 600 /uL (0-900); Monocytes Percent Auto 8.1 % (3-14); Neutrophils Absolute Auto 3500 /uL (1500-7000); Neutrophils Percent Auto 46.5 % (50-75); Platelet Count 275 X10^3/uL (150-400); Red Blood Cell Count 4.56 X10^6/uL (4.5-5.9); Red Cell Distribution Width 14.8 % (11.6-14.8); White Blood Cell Count 7.5 X10^3/uL (4.5-11.0)
[2022-11-07 08:34] LABS: Alanine Aminotransferase 31 IU/L (<50); Albumin 3.9 g/dL (3.5-5.0); Albumin Globulin Ratio 1.1 (1.0-2.8); Alkaline Phosphatase 51 U/L (38-126); Aspartate Aminotransferase 22 IU/L (17-59); BUN Creatinine Ratio 27.5 (6-22); Bilirubin Total 0.5 mg/dL (0.2-1.3); Blood Urea Nitrogen 22 mg/dL (9-20); C-Reactive Protein Quant < 0.5 mg/dL (<1.0); Calcium 8.8 mg/dL (8.4-10.2); Carbon Dioxide 28 mmol/L (22-32); Chloride 106 mmol/L (98-107); Estimated Glomerular Filt Rate > 60 mL/min (>60); Globulin 3.4 g/dL (1.7-4.1); Glucose 94 mg/dL (80-110); HEMOLYSIS < 15 (0-50); Potassium 4.1 mmol/L (3.4-5.1); Sodium 140 mmol/L (137-145); Total Protein 7.3 g/dL (6.3-8.2)
[2022-11-07 08:35] LABS: Erythrocyte Sedimentation Rate 12 MM/HR (0-15)
== END ==
PROVIDERS: PCP Family Medicine; Referring Provider Internal Medicine Gastroenterology; Visit Provider Internal Medicine Gastroenterology
DX: K51.00 Ulcerative (chronic) pancolitis without complications (principal)
CPT/HCPCS: 36415; 80053; 85025; 85651; 86140

== ENCOUNTER → 2022-11-16 11:38 | Outpatient (CLI) | payer MEDICARE, BC, SELFPAY ==
[2022-11-21 18:13] LABS: Calprotectin, Stool 41 ug/g (0-120)
== END ==
PROVIDERS: PCP Family Medicine; Referring Provider Internal Medicine Gastroenterology; Visit Provider Internal Medicine Gastroenterology
DX: K51.00 Ulcerative (chronic) pancolitis without complications (principal)
CPT/HCPCS: 83993

== ENCOUNTER → 2023-01-25 07:10 | Outpatient (CLI) | payer MEDICARE, BC, SELFPAY ==
[2023-01-25 07:50] LABS: Add Manual Diff / Slide Review NO; Basophils Absolute Auto 100 /uL (0-100); Basophils Percent Auto 1.4 % (0-2); Eosinophils Absolute Auto 300 /uL (0-450); Eosinophils Percent Auto 4.5 % (2-4); Hematocrit 43.2 % (41-53); Hemoglobin 14.9 g/dL (13.5-17.5); Lymphocytes Absolute Auto 2800 /uL (1100-4500); Lymphocytes Percent Auto 43.2 % (25-40); Mean Corpuscular HGB Conc 34.5 % (30-36); Mean Corpuscular Hemoglobin 32.8 PG (26-34); Mean Corpuscular Volume 95.1 fL (80-100); Monocytes Absolute Auto 800 /uL (0-900); Neutrophils Absolute Auto 2500 /uL (1500-7000); Neutrophils Percent Auto 38.9 % (50-75); Platelet Count 287 X10^3/uL (150-400); Red Blood Cell Count 4.54 X10^6/uL (4.5-5.9); Red Cell Distribution Width 14.9 % (11.6-14.8); White Blood Cell Count 6.5 X10^3/uL (4.5-11.0)
[2023-01-25 07:59] LABS: Erythrocyte Sedimentation Rate 12 MM/HR (0-15)
[2023-01-25 08:10] LABS: Alanine Aminotransferase 46 IU/L (<50); Albumin 4.1 g/dL (3.5-5.0); Albumin Globulin Ratio 1.3 (1.0-2.8); Alkaline Phosphatase 53 U/L (38-126); Aspartate Aminotransferase 27 IU/L (17-59); BUN Creatinine Ratio 23.3 (6-22); Bilirubin Total 0.5 mg/dL (0.2-1.3); Blood Urea Nitrogen 20 mg/dL (9-20); C-Reactive Protein Quant 0.8 mg/dL (<1.0); Calcium 9.4 mg/dL (8.4-10.2); Carbon Dioxide 28 mmol/L (22-32); Chloride 105 mmol/L (98-107); Estimated Glomerular Filt Rate > 60 mL/min (>60); Globulin 3.1 g/dL (1.7-4.1); Glucose 102 mg/dL (80-110); HEMOLYSIS < 15 (0-50); Potassium 4.6 mmol/L (3.4-5.1); Sodium 141 mmol/L (137-145); Total Protein 7.2 g/dL (6.3-8.2)
== END ==
PROVIDERS: PCP Family Medicine; Referring Provider Internal Medicine Gastroenterology; Visit Provider Internal Medicine Gastroenterology
DX: K51.00 Ulcerative (chronic) pancolitis without complications (principal); K51.80 Other ulcerative colitis without complications
CPT/HCPCS: 36415; 80053; 85025; 85651; 86140

== ENCOUNTER → 2023-05-02 06:57 | Outpatient (CLI) | payer MEDICARE, BC, SELFPAY ==
[2023-05-02 08:24] LABS: Add Manual Diff / Slide Review NO; Basophils Absolute Auto 0 /uL (0-100); Basophils Percent Auto 0.6 % (0-2); Eosinophils Absolute Auto 700 /uL (0-450); Hematocrit 44.2 % (41-53); Hemoglobin 15.1 g/dL (13.5-17.5); Lymphocytes Absolute Auto 3100 /uL (1100-4500); Lymphocytes Percent Auto 40.6 % (25-40); Mean Corpuscular HGB Conc 34.1 % (30-36); Mean Corpuscular Hemoglobin 32.9 PG (26-34); Mean Corpuscular Volume 96.5 fL (80-100); Monocytes Absolute Auto 600 /uL (0-900); Monocytes Percent Auto 7.8 % (3-14); Neutrophils Absolute Auto 3200 /uL (1500-7000); Platelet Count 285 X10^3/uL (150-400); Red Blood Cell Count 4.58 X10^6/uL (4.5-5.9); White Blood Cell Count 7.6 X10^3/uL (4.5-11.0)
[2023-05-02 08:38] LABS: Erythrocyte Sedimentation Rate 9 MM/HR (0-15)
[2023-05-02 08:56] LABS: Alanine Aminotransferase 32 IU/L (<50); Albumin 3.9 g/dL (3.5-5.0); Albumin Globulin Ratio 1.3 (1.0-2.8); Alkaline Phosphatase 47 U/L (38-126); Aspartate Aminotransferase 25 IU/L (17-59); BUN Creatinine Ratio 21.3 (6-22); Bilirubin Total 0.4 mg/dL (0.2-1.3); Blood Urea Nitrogen 17 mg/dL (9-20); C-Reactive Protein Quant 0.5 mg/dL (<1.0); Calcium 9.2 mg/dL (8.4-10.2); Carbon Dioxide 28 mmol/L (22-32); Chloride 105 mmol/L (98-107); Estimated Glomerular Filt Rate > 60 mL/min (>60); Glucose 89 mg/dL (80-110); HEMOLYSIS < 15 (0-50); Potassium 4.6 mmol/L (3.4-5.1); Sodium 141 mmol/L (137-145); Total Protein 6.9 g/dL (6.3-8.2)
== END ==
PROVIDERS: PCP Family Medicine; Referring Provider Internal Medicine Gastroenterology; Visit Provider Internal Medicine Gastroenterology
DX: K51.00 Ulcerative (chronic) pancolitis without complications (principal)
CPT/HCPCS: 36415; 80053; 85025; 85651; 86140

== ENCOUNTER → 2023-05-30 07:07 | Outpatient (CLI) | payer MEDICARE, BC, SELFPAY ==
[2023-05-30 07:29] LABS: Add Manual Diff / Slide Review NO; Basophils Absolute Auto 100 /uL (0-100); Basophils Percent Auto 0.9 % (0-2); Eosinophils Absolute Auto 200 /uL (0-450); Eosinophils Percent Auto 3.2 % (2-4); Hematocrit 43.4 % (41-53); Hemoglobin 14.9 g/dL (13.5-17.5); Lymphocytes Absolute Auto 1700 /uL (1100-4500); Lymphocytes Percent Auto 30.7 % (25-40); Mean Corpuscular HGB Conc 34.5 % (30-36); Mean Corpuscular Hemoglobin 33.1 PG (26-34); Mean Corpuscular Volume 96.1 fL (80-100); Monocytes Absolute Auto 1000 /uL (0-900); Monocytes Percent Auto 17.8 % (3-14); Neutrophils Absolute Auto 2700 /uL (1500-7000); Neutrophils Percent Auto 47.4 % (50-75); Platelet Count 256 X10^3/uL (150-400); Red Blood Cell Count 4.51 X10^6/uL (4.5-5.9); Red Cell Distribution Width 14.9 % (11.6-14.8); White Blood Cell Count 5.6 X10^3/uL (4.5-11.0)
[2023-05-30 07:59] LABS: Alanine Aminotransferase 41 IU/L (<50); Albumin 3.9 g/dL (3.5-5.0); Albumin Globulin Ratio 1.3 (1.0-2.8); Alkaline Phosphatase 51 U/L (38-126); Aspartate Aminotransferase 26 IU/L (17-59); BUN Creatinine Ratio 19.3 (6-22); Bilirubin Total 0.4 mg/dL (0.2-1.3); Blood Urea Nitrogen 16 mg/dL (9-20); Calcium 9.1 mg/dL (8.4-10.2); Carbon Dioxide 26 mmol/L (22-32); Chloride 103 mmol/L (98-107); Cholesterol 199 mg/dL (140-199); Estimated Glomerular Filt Rate > 60 mL/min (>60); Globulin 3.1 g/dL (1.7-4.1); Glucose 97 mg/dL (80-110); HDL Cholesterol 54 mg/dL (40-60); HEMOLYSIS < 15 (0-50); LDL Cholesterol Calculated 123 mg/dL (<100); Potassium 4.2 mmol/L (3.4-5.1); Sodium 137 mmol/L (137-145); Triglycerides 112 mg/dL (35-150); Uric Acid 5.6 mg/dL (3.5-8.5)
[2023-05-30 08:22] LABS: Prostate Specific Antigen Scrn 1.39 ng/mL (0.1-4.0)
== END ==
PROVIDERS: PCP Family Medicine; Referring Provider Family Medicine; Visit Provider Family Medicine
DX: E78.5 Hyperlipidemia, unspecified (principal); Z12.5 Encounter for screening for malignant neoplasm of prostate; I10 Essential (primary) hypertension; M10.9 Gout, unspecified; N40.0 Benign prostatic hyperplasia without lower urinary tract symptoms
CPT/HCPCS: 36415; 80053; 80061; 84550; 85025; G0103

== ENCOUNTER → 2023-06-08 10:37 | Outpatient (CLI) | payer MEDICARE, BC, SELFPAY ==
--- NOTE | 2023-06-08 10:39 | DI.RAD.S_ITS ---
PROCEDURE: XR CHEST 2V INDICATIONS: hx lung nodules TECHNIQUE: 2 views of the chest were acquired. COMPARISON: None. FINDINGS: Surgical changes and devices: None. Lungs and pleura: Lung volumes are low. Lungs are clear. No pleural effusions or pneumothorax. Mediastinum: Mediastinal contours are normal. Heart size is normal. Bones and chest wall: No suspicious bony abnormalities. Soft tissues appear unremarkable. IMPRESSION: Low lung volumes. No acute cardiopulmonary findings. Dictated by: Suzy Wilson M.D. on 06/08/2023 at 13:28 Approved by: Suzy Wilson M.D. on 06/08/2023 at 13:28
== END ==
PROVIDERS: PCP Family Medicine; Referring Provider Family Medicine; Visit Provider Family Medicine
DX: R91.8 Other nonspecific abnormal finding of lung field (principal)
CPT/HCPCS: 71046

== ENCOUNTER → 2023-07-27 07:19 | Outpatient (CLI) | payer MEDICARE, BC, SELFPAY ==
[2023-07-27 08:13] LABS: Add Manual Diff / Slide Review NO; Basophils Absolute Auto 100 /uL (0-100); Basophils Percent Auto 0.9 % (0-2); Eosinophils Absolute Auto 500 /uL (0-450); Eosinophils Percent Auto 6.3 % (2-4); Hematocrit 46.6 % (41-53); Hemoglobin 15.7 g/dL (13.5-17.5); Lymphocytes Absolute Auto 3000 /uL (1100-4500); Lymphocytes Percent Auto 37.4 % (25-40); Mean Corpuscular HGB Conc 33.8 % (30-36); Mean Corpuscular Hemoglobin 32.6 PG (26-34); Mean Corpuscular Volume 96.6 fL (80-100); Monocytes Absolute Auto 600 /uL (0-900); Monocytes Percent Auto 7.2 % (3-14); Neutrophils Absolute Auto 3800 /uL (1500-7000); Neutrophils Percent Auto 48.2 % (50-75); Platelet Count 302 X10^3/uL (150-400); Red Blood Cell Count 4.82 X10^6/uL (4.5-5.9); Red Cell Distribution Width 14.6 % (11.6-14.8); White Blood Cell Count 7.9 X10^3/uL (4.5-11.0)
[2023-07-27 08:33] LABS: Erythrocyte Sedimentation Rate 7 MM/HR (0-15)
[2023-07-27 08:42] LABS: Alanine Aminotransferase 37 IU/L (<50); Albumin 4.1 g/dL (3.5-5.0); Albumin Globulin Ratio 1.3 (1.0-2.8); Alkaline Phosphatase 50 U/L (38-126); Aspartate Aminotransferase 23 IU/L (17-59); BUN Creatinine Ratio 28.6 (6-22); Bilirubin Total 0.6 mg/dL (0.2-1.3); Blood Urea Nitrogen 24 mg/dL (9-20); C-Reactive Protein Quant 0.9 mg/dL (<1.0); Calcium 9.8 mg/dL (8.4-10.2); Carbon Dioxide 28 mmol/L (22-32); Chloride 104 mmol/L (98-107); Estimated Glomerular Filt Rate > 60 mL/min (>60); Globulin 3.1 g/dL (1.7-4.1); Glucose 100 mg/dL (80-110); HEMOLYSIS < 15 (0-50); Potassium 4.6 mmol/L (3.4-5.1); Sodium 138 mmol/L (137-145); Total Protein 7.2 g/dL (6.3-8.2)
== END ==
PROVIDERS: PCP Family Medicine; Referring Provider Internal Medicine Gastroenterology; Visit Provider Internal Medicine Gastroenterology
DX: K51.90 Ulcerative colitis, unspecified, without complications
CPT/HCPCS: 36415; 80053; 85025; 85651; 86140

== ENCOUNTER → 2023-07-27 08:32 | Outpatient (CLI) | payer MEDICARE, BC, SELFPAY ==
--- NOTE | 2023-07-27 08:33 | DI.US.S_ITS ---
PROCEDURE: US PERIPH VENOUS LOW EXTREM RT INDICATIONS: RIGHT LOWER EXTREMITY PAIN TECHNIQUE: Real-time imaging, as well as color and pulse Doppler interrogation, were performed of the lower extremity deep veins from the inguinal ligament to the popliteal fossa, with documentation of the visualized calf veins. COMPARISON: None. FINDINGS: The common femoral, femoral, popliteal, and the visualized calf veins are normally compressible, and free of intraluminal thrombus. Color and pulse Doppler demonstrate normal phasic intraluminal flow. There is normal augmentation response to distal compression maneuver. No upper thigh GSV clot. IMPRESSION: Negative right lower extremity duplex venous ultrasound for DVT. Dictated by: Jean-Pierre Johnson M.D. on 07/27/2023 at 11:08 Approved by: Jean-Pierre Johnson M.D. on 07/27/2023 at 11:09
== END ==
PROVIDERS: PCP Family Medicine; Referring Provider Nurse Practitioner Family; Visit Provider Nurse Practitioner Family
DX: M79.604 Pain in right leg (principal); K51.90 Ulcerative colitis, unspecified, without complications
CPT/HCPCS: 36415; 80053; 85025; 85651; 86140; 93971

== ENCOUNTER → 2023-11-03 06:59 | Outpatient (CLI) | payer MEDICARE, BC, SELFPAY ==
[2023-11-03 08:01] LABS: Mean Corpuscular HGB Conc 34.2 % (30-36); Mean Corpuscular Hemoglobin 32.8 PG (26-34); Mean Corpuscular Volume 96.1 fL (80-100); Platelet Count 272 X10^3/uL (150-400); Red Blood Cell Count 4.58 X10^6/uL (4.5-5.9); Red Cell Distribution Width 14.3 % (11.6-14.8); White Blood Cell Count 6.8 X10^3/uL (4.5-11.0)
[2023-11-03 08:16] LABS: Alanine Aminotransferase 30 IU/L (<50); Albumin Globulin Ratio 1.1 (1.0-2.8); Alkaline Phosphatase 51 U/L (38-126); Aspartate Aminotransferase 30 IU/L (17-59); BUN Creatinine Ratio 26.8 (6-22); Bilirubin Total 0.6 mg/dL (0.2-1.3); Blood Urea Nitrogen 22 mg/dL (9-20); C-Reactive Protein Quant 1.1 mg/dL (<1.0); Calcium 9.2 mg/dL (8.4-10.2); Carbon Dioxide 31 mmol/L (22-32); Chloride 108 mmol/L (98-107); Estimated Glomerular Filt Rate > 60 mL/min (>60); Globulin 3.5 g/dL (1.7-4.1); Glucose 90 mg/dL (80-110); HEMOLYSIS < 15 (0-50); Potassium 4.4 mmol/L (3.4-5.1); Sodium 139 mmol/L (137-145); Total Protein 7.5 g/dL (6.3-8.2)
[2023-11-03 08:48] LABS: Neutrophils Absolute Manual 2652 /uL (3000-5900); RBC Morphology Normal Morphology; Total Cells Counted 100
[2023-11-03 08:49] LABS: Erythrocyte Sedimentation Rate 9 MM/HR (0-15)
== END ==
PROVIDERS: PCP Family Medicine; Referring Provider Pharmacist; Visit Provider Pharmacist
DX: K51.90 Ulcerative colitis, unspecified, without complications (principal)
CPT/HCPCS: 36415; 80053; 85025; 85651; 86140

== ENCOUNTER → 2024-01-30 07:07 | Outpatient (CLI) | payer MEDICARE, BC, SELFPAY ==
[2024-01-30 08:15] LABS: Add Manual Diff / Slide Review NO; Basophils Absolute Auto 100 /uL (0-100); Basophils Percent Auto 1.2 % (0-2); Eosinophils Absolute Auto 300 /uL (0-450); Lymphocytes Absolute Auto 2900 /uL (1100-4500); Mean Corpuscular HGB Conc 34.1 % (30-36); Mean Corpuscular Hemoglobin 32.8 PG (26-34); Mean Corpuscular Volume 96.2 fL (80-100); Monocytes Absolute Auto 700 /uL (0-900); Monocytes Percent Auto 9.5 % (3-14); Neutrophils Absolute Auto 3300 /uL (1500-7000); Neutrophils Percent Auto 45.3 % (50-75); Platelet Count 292 X10^3/uL (150-400); Red Blood Cell Count 4.58 X10^6/uL (4.5-5.9); Red Cell Distribution Width 15.2 % (11.6-14.8); White Blood Cell Count 7.3 X10^3/uL (4.5-11.0)
[2024-01-30 08:29] LABS: Erythrocyte Sedimentation Rate 11 MM/HR (0-15)
[2024-01-30 08:36] LABS: Alanine Aminotransferase 34 IU/L (<50); Albumin Globulin Ratio 1.5 (1.0-2.8); Alkaline Phosphatase 56 U/L (38-126); Aspartate Aminotransferase 28 IU/L (17-59); BUN Creatinine Ratio 23.4 (6-22); Bilirubin Total 0.6 mg/dL (0.2-1.3); Blood Urea Nitrogen 18 mg/dL (9-20); C-Reactive Protein Quant < 0.5 mg/dL (<1.0); Calcium 9.2 mg/dL (8.4-10.2); Carbon Dioxide 27 mmol/L (22-32); Chloride 107 mmol/L (98-107); Estimated Glomerular Filt Rate > 60 mL/min (>60); Globulin 2.7 g/dL (1.7-4.1); Glucose 93 mg/dL (80-110); HEMOLYSIS < 15 (0-50); Potassium 4.5 mmol/L (3.4-5.1); Sodium 139 mmol/L (137-145); Total Protein 6.7 g/dL (6.3-8.2)
== END ==
PROVIDERS: PCP Family Medicine; Referring Provider Pharmacist; Visit Provider Pharmacist
DX: K51.90 Ulcerative colitis, unspecified, without complications (principal)
CPT/HCPCS: 36415; 80053; 85025; 85651; 86140

== ENCOUNTER → 2024-05-01 07:18 | Outpatient (CLI) | payer MEDICARE, BC, SELFPAY ==
[2024-05-01 08:52] LABS: Add Manual Diff / Slide Review NO; Basophils Absolute Auto 100 /uL (0-100); Basophils Percent Auto 0.9 % (0-2); Eosinophils Absolute Auto 300 /uL (0-450); Eosinophils Percent Auto 5.2 % (2-4); Hematocrit 44.6 % (41-53); Lymphocytes Absolute Auto 2700 /uL (1100-4500); Lymphocytes Percent Auto 44.2 % (25-40); Mean Corpuscular HGB Conc 33.7 % (30-36); Mean Corpuscular Hemoglobin 32.4 PG (26-34); Mean Corpuscular Volume 96.4 fL (80-100); Monocytes Absolute Auto 700 /uL (0-900); Monocytes Percent Auto 10.8 % (3-14); Neutrophils Absolute Auto 2400 /uL (1500-7000); Neutrophils Percent Auto 38.9 % (50-75); Platelet Count 256 X10^3/uL (150-400); Red Blood Cell Count 4.62 X10^6/uL (4.5-5.9); Red Cell Distribution Width 14.7 % (11.6-14.8); White Blood Cell Count 6.1 X10^3/uL (4.5-11.0)
[2024-05-01 09:12] LABS: Erythrocyte Sedimentation Rate 17 MM/HR (0-15)
[2024-05-01 09:22] LABS: HEMOLYSIS < 15 (0-50)
[2024-05-01 09:26] LABS: C-Reactive Protein Quant 1.3 mg/dL (<1.0)
[2024-05-01 09:29] LABS: Alanine Aminotransferase 28 IU/L (<50); Albumin 3.8 g/dL (3.5-5.0); Albumin Globulin Ratio 1.4 (1.0-2.8); Alkaline Phosphatase 55 U/L (38-126); Aspartate Aminotransferase 24 IU/L (17-59); BUN Creatinine Ratio 24.1 (6-22); Bilirubin Total 0.3 mg/dL (0.2-1.3); Blood Urea Nitrogen 19 mg/dL (9-20); Calcium 9.2 mg/dL (8.4-10.2); Carbon Dioxide 24 mmol/L (22-32); Chloride 107 mmol/L (98-107); Cholesterol 194 mg/dL (140-199); Estimated Glomerular Filt Rate > 60 mL/min (>60); Globulin 2.7 g/dL (1.7-4.1); Glucose 91 mg/dL (80-110); HDL Cholesterol 51 mg/dL (40-60); LDL Cholesterol Calculated 128 mg/dL (<100); Potassium 4.5 mmol/L (3.4-5.1); Sodium 139 mmol/L (137-145); Total Protein 6.5 g/dL (6.3-8.2); Triglycerides 74 mg/dL (35-150); Uric Acid 5.6 mg/dL (3.5-8.5)
[2024-05-01 09:56] LABS: Prostate Specific Antigen Scrn 0.968 ng/mL (0.1-4.0)
== END ==
PROVIDERS: PCP Family Medicine; Referring Provider Pharmacist; Visit Provider Pharmacist
DX: Z00.00 Encounter for general adult medical examination without abnormal findings (principal); K51.90 Ulcerative colitis, unspecified, without complications; E78.5 Hyperlipidemia, unspecified; Z12.5 Encounter for screening for malignant neoplasm of prostate; M10.9 Gout, unspecified; N40.0 Benign prostatic hyperplasia without lower urinary tract symptoms; I10 Essential (primary) hypertension
CPT/HCPCS: 36415; 80053; 80061; 84550; 85025; 85651; 86140; G0103

== ENCOUNTER → 2024-07-24 07:03 | Outpatient (CLI) | payer MEDICARE, BC, SELFPAY ==
[2024-07-24 08:08] LABS: Add Manual Diff / Slide Review NO; Basophils Absolute Auto 100 /uL (0-100); Basophils Percent Auto 0.9 % (0-2); Eosinophils Absolute Auto 400 /uL (0-450); Eosinophils Percent Auto 5.2 % (2-4); Hematocrit 45.5 % (41-53); Hemoglobin 15.5 g/dL (13.5-17.5); Lymphocytes Absolute Auto 2900 /uL (1100-4500); Lymphocytes Percent Auto 40.5 % (25-40); Mean Corpuscular Volume 97.1 fL (80-100); Monocytes Absolute Auto 600 /uL (0-900); Monocytes Percent Auto 8.4 % (3-14); Neutrophils Absolute Auto 3300 /uL (1500-7000); Platelet Count 291 X10^3/uL (150-400); Red Blood Cell Count 4.69 X10^6/uL (4.5-5.9); Red Cell Distribution Width 15.3 % (11.6-14.8); White Blood Cell Count 7.2 X10^3/uL (4.5-11.0)
[2024-07-24 08:30] LABS: Alanine Aminotransferase 38 IU/L (<50); Albumin 3.9 g/dL (3.5-5.0); Albumin Globulin Ratio 1.4 (1.0-2.8); Alkaline Phosphatase 52 U/L (38-126); Aspartate Aminotransferase 29 IU/L (17-59); Bilirubin Total 0.5 mg/dL (0.2-1.3); Blood Urea Nitrogen 21 mg/dL (9-20); C-Reactive Protein Quant < 0.5 mg/dL (<1.0); Calcium 9.2 mg/dL (8.4-10.2); Carbon Dioxide 27 mmol/L (22-32); Chloride 106 mmol/L (98-107); Estimated Glomerular Filt Rate > 60 mL/min (>60); Globulin 2.8 g/dL (1.7-4.1); Glucose 91 mg/dL (80-110); HEMOLYSIS < 15 (0-50); Potassium 4.7 mmol/L (3.4-5.1); Sodium 139 mmol/L (137-145); Total Protein 6.7 g/dL (6.3-8.2)
[2024-07-24 09:27] LABS: Erythrocyte Sedimentation Rate 7 MM/HR (0-15)
== END ==
PROVIDERS: Pharmacist; PCP Family Medicine; Referring Provider Family Medicine; Visit Provider Family Medicine
DX: K51.90 Ulcerative colitis, unspecified, without complications (principal)
CPT/HCPCS: 36415; 80053; 85025; 85651; 86140

== ENCOUNTER → 2024-08-06 10:12 | Outpatient (CLI) | payer MEDICARE, BC, SELFPAY ==
[2024-08-06 11:30] LABS: Vitamin D 25 Hydroxy (D3) 37.5 ng/mL (30.0-100.0)
[2024-08-06 11:55] LABS: Thyroid Stimulating Hormone 0.856 uIU/mL (0.47-4.68)
[2024-08-06 11:59] LABS: Hepatitis B Surface Antigen NEGATIVE s/c (NEGATIVE)
[2024-08-06 12:15] LABS: Vitamin B12 736 pg/mL (239-931)
[2024-08-08 03:10] LABS: Hepatitis B Core Antibody Negative (Negative)
[2024-08-09 02:07] LABS: Hepatitis A Antibody Total Negative (Negative); Hepatitis B Surf AB Quant <3.5 mIU/mL (Immunity>10)
== END ==
LOC: LAB 10:18
PROVIDERS: PCP Family Medicine; Referring Provider Internal Medicine Gastroenterology; Visit Provider Internal Medicine Gastroenterology
DX: K50.90 Crohn's disease, unspecified, without complications (principal)
CPT/HCPCS: 36415; 82306; 82607; 84443; 86704; 86706; 86708; 87340

== ENCOUNTER → 2024-10-31 07:02 | Outpatient (CLI) | payer MEDICARE, BC, SELFPAY ==
[2024-10-31 08:45] LABS: Add Manual Diff / Slide Review NO; Basophils Absolute Auto 100 /uL (0-100); Basophils Percent Auto 1.4 % (0-2); Eosinophils Absolute Auto 400 /uL (0-450); Eosinophils Percent Auto 5.1 % (2-4); Hematocrit 46.1 % (41-53); Hemoglobin 15.6 g/dL (13.5-17.5); Lymphocytes Absolute Auto 2600 /uL (1100-4500); Lymphocytes Percent Auto 37.8 % (25-40); Mean Corpuscular HGB Conc 33.9 % (30-36); Mean Corpuscular Hemoglobin 32.7 PG (26-34); Mean Corpuscular Volume 96.5 fL (80-100); Monocytes Absolute Auto 600 /uL (0-900); Monocytes Percent Auto 8.8 % (3-14); Neutrophils Absolute Auto 3300 /uL (1500-7000); Neutrophils Percent Auto 46.9 % (50-75); Platelet Count 269 X10^3/uL (150-400); Red Blood Cell Count 4.78 X10^6/uL (4.5-5.9); Red Cell Distribution Width 14.7 % (11.6-14.8)
[2024-10-31 09:04] LABS: Alanine Aminotransferase 43 IU/L (<50); Albumin 4.1 g/dL (3.5-5.0); Albumin Globulin Ratio 1.3 (1.0-2.8); Alkaline Phosphatase 53 U/L (38-126); Aspartate Aminotransferase 32 IU/L (17-59); Bilirubin Total 0.6 mg/dL (0.2-1.3); Blood Urea Nitrogen 18 mg/dL (9-20); C-Reactive Protein Quant < 0.5 mg/dL (<1.0); Carbon Dioxide 29 mmol/L (22-32); Chloride 105 mmol/L (98-107); Estimated Glomerular Filt Rate > 60 mL/min (>60); Globulin 3.1 g/dL (1.7-4.1); Glucose 93 mg/dL (80-110); HEMOLYSIS < 15 (0-50); Potassium 4.7 mmol/L (3.4-5.1); Sodium 140 mmol/L (137-145); Total Protein 7.2 g/dL (6.3-8.2)
[2024-10-31 09:24] LABS: Thyroid Stimulating Hormone 0.764 uIU/mL (0.47-4.68)
[2024-10-31 09:39] LABS: Vitamin D 25 Hydroxy (D3) 42.9 ng/mL (30.0-100.0)
[2024-10-31 09:43] LABS: Vitamin B12 695 pg/mL (239-931)
[2024-10-31 15:41] LABS: Hepatitis B Surface Antigen NEGATIVE s/c (NEGATIVE)
[2024-11-01 00:15] LABS: HBsAg Screen Negative (Negative); Hep A AB IgM Negative (Negative); Hepatitis A Ab, Total Negative (Negative); Hepatitis B Core Antibody IgM Negative (Negative); Hepatitis B Core Total Negative (Negative); Hepatitis B Surface AB, Qual Non Reactive (.); Hepatitis C Virus Ab Non Reactive (Non Reactive)
[2024-11-03 23:07] LABS: QuantiFERON Mitogen Value >10.00 IU/mL (.); QuantiFERON Nil Value 0.15 IU/mL (.); QuantiFERON TB Gold Plus Negative (Negative); QuantiFERON TB1 Ag Value 0.12 IU/mL (.); QuantiFERON TB2 Ag Value 0.19 IU/mL (.)
== END ==
PROVIDERS: PCP Family Medicine
DX: K50.90 Crohn's disease, unspecified, without complications (principal)
CPT/HCPCS: 36415; 80053; 80074; 82306; 82607; 84443; 85025; 86140; 86480; 86704; 86706; 86708; 87340

== ENCOUNTER → 2025-04-01 07:04 | Outpatient (CLI) | payer MEDICARE, BC, SELFPAY ==
[2025-04-01 07:44] LABS: Add Manual Diff / Slide Review NO; Hematocrit 45.2 % (41-53); Hemoglobin 15.5 g/dL (13.5-17.5); Lymphocytes Absolute Auto 2500 /uL (1100-4500); Mean Corpuscular HGB Conc 34.3 % (30-36); Mean Corpuscular Hemoglobin 33.2 PG (26-34); Mean Corpuscular Volume 96.8 fL (80-100); Platelet Count 262 X10^3/uL (150-400)
[2025-04-01 08:06] LABS: Alanine Aminotransferase 38 IU/L (<50); Albumin 4.1 g/dL (3.5-5.0); Albumin Globulin Ratio 1.2 (1.0-2.8); Alkaline Phosphatase 55 U/L (38-126); Blood Urea Nitrogen 17 mg/dL (9-20); Calcium 9.1 mg/dL (8.4-10.2); Carbon Dioxide 25 mmol/L (22-32); Chloride 108 mmol/L (98-107); Estimated Glomerular Filt Rate > 60 mL/min (>60); Globulin 3.3 g/dL (1.7-4.1); Glucose 97 mg/dL (70-99); HEMOLYSIS < 15 (0-50); Potassium 4.2 mmol/L (3.4-5.1); Sodium 139 mmol/L (137-145); Total Protein 7.4 g/dL (6.3-8.2)
[2025-04-01 08:21] LABS: Vitamin D 25 Hydroxy (D3) 42.9 ng/mL (30.0-100.0)
[2025-04-01 08:40] LABS: Thyroid Stimulating Hormone 0.853 uIU/mL (0.47-4.68)
[2025-04-01 08:59] LABS: Vitamin B12 651 pg/mL (239-931)
[2025-04-01 16:51] LABS: Hepatitis B Surface Antigen NEGATIVE s/c (NEGATIVE)
[2025-04-03 12:09] LABS: QuantiFERON Mitogen Value >10.00 IU/mL (.); QuantiFERON Nil Value 0.16 IU/mL (.); QuantiFERON TB Gold Plus Negative (Negative); QuantiFERON TB1 Ag Value 0.15 IU/mL (.); QuantiFERON TB2 Ag Value 0.28 IU/mL (.)
== END ==
PROVIDERS: PCP Family Medicine; Referring Provider Internal Medicine Gastroenterology; Visit Provider Internal Medicine Gastroenterology
DX: K50.10 Crohn's disease of large intestine without complications (principal)
CPT/HCPCS: 36415; 80053; 82306; 82607; 84443; 85025; 86140; 86480; 86704; 86705; 86707; 86708; 87340

== ENCOUNTER → 2025-05-26 06:57 | Outpatient (CLI) | payer MEDICARE, BC, SELFPAY ==
[2025-05-26 08:15] LABS: Cholesterol 202 mg/dL (140-199); HDL Cholesterol 67 mg/dL (40-60); Triglycerides 100 mg/dL (35-150)
== END ==
PROVIDERS: PCP Family Medicine; Referring Provider Family Medicine; Visit Provider Family Medicine
DX: E78.5 Hyperlipidemia, unspecified (principal); Z12.5 Encounter for screening for malignant neoplasm of prostate; N40.0 Benign prostatic hyperplasia without lower urinary tract symptoms
CPT/HCPCS: 36415; 80061; G0103

== ENCOUNTER → 2025-07-01 06:59 | Outpatient (CLI) | payer MEDICARE, BC, SELFPAY ==
[2025-07-01 08:00] LABS: Add Manual Diff / Slide Review NO; Hematocrit 45.2 % (41-53); Hemoglobin 15.8 g/dL (13.5-17.5); Lymphocytes Absolute Auto 2800 /uL (1100-4500); Mean Corpuscular HGB Conc 34.8 % (30-36); Mean Corpuscular Hemoglobin 33.4 PG (26-34); Mean Corpuscular Volume 96.0 fL (80-100); Platelet Count 292 X10^3/uL (150-400)
[2025-07-01 08:43] LABS: Alanine Aminotransferase 36 IU/L (<50); Albumin 4.1 g/dL (3.5-5.0); Albumin Globulin Ratio 1.3 (1.0-2.8); Alkaline Phosphatase 54 U/L (38-126); Blood Urea Nitrogen 19 mg/dL (9-20); Calcium 9.4 mg/dL (8.4-10.2); Carbon Dioxide 27 mmol/L (22-32); Chloride 105 mmol/L (98-107); Estimated Glomerular Filt Rate > 60 mL/min (>60); Globulin 3.1 g/dL (1.7-4.1); Glucose 95 mg/dL (70-99); HEMOLYSIS < 15 (0-50); Potassium 4.6 mmol/L (3.4-5.1); Sodium 139 mmol/L (137-145); Total Protein 7.2 g/dL (6.3-8.2)
== END ==
PROVIDERS: PCP Family Medicine; Referring Provider Internal Medicine Gastroenterology; Visit Provider Internal Medicine Gastroenterology
DX: K50.90 Crohn's disease, unspecified, without complications (principal)
CPT/HCPCS: 36415; 80053; 85025; 86140